=== PATIENT | male | born 1955 | race Caucasian/White ===

== ENCOUNTER → 2018-04-11 14:46 | Outpatient (CLI) | payer OTHER, SELFPAY ==
[2018-04-11 16:16] LABS: Absolute Lymphocyte Count 1.19 X10^3/ul (0.83-4.51); Absolute Neutrophil Count 2.9 X10^3/uL (2.0-7.7); Basophil# 0.02 X10^3/uL; Basophil% 0.4 % (0-1); Eosinophil# 0.09 X10^3/uL; Hematocrit 40.7 % (40-54); Lymphocyte # 1.19 X10^3/ul (4.0); Lymphocyte % 26.2 % (19-41); Mean Corp Hgb Conc 34.4 g/gl (32-36); Mean Corpuscular Hgb 34.3 pg (27.0-32.0); Mean Corpuscular Volume 99.8 fL (80-94); Mean Platelet Vol. 11.2 fl (6.2-12.0); Monocyte# 0.31 X10^3/uL; Monocyte% 6.8 % (0-10); Neutrophil # 2.93 X10^3/uL (2.7-7.7); Neutrophil % 64.4 % (47-70); Platelet Count 143 K/mm3 (150-450); RBC Distribution Width CV 14.5 % (11.6-14.6); RBC Distribution Width SD 53.9 fl (35.1-43.9); Red Blood Count 4.08 M/mm3 (4.6-6.2); White Blood Count 4.6 K/mm3 (4.4-11.0)
[2018-04-11 16:21] LABS: POSITIVE COUNT NO; POSITIVE DIFFERENTIAL NO; POSITIVE MORPHOLOGY NO
[2018-04-11 16:47] LABS: AST(SGOT) 18 U/L (15-37); Alanine Aminotransfer ALT/SGPT 24 U/L (16-61); Albumin, Serum 3.4 g/dL (3.2-5.0); Alkaline Phosphatase 81 U/L (45-117); Anion Gap 8 (5-15); BUN 22 mg/dL (7-18); BUN/Creat Ratio 17.9 RATIO (10-20); Calcium,Total 9.1 mg/dL (8.5-10.1); Chloride 109 mmol/L (98-107); Creatinine, Serum 1.23 mg/dL (0.70-1.30); EST Glomerular Filtration Rate 63 mL/min (>60); Est Glom Filt Rate - Afr Amer 77 mL/min (>60); Globulin 3.5 g/dL (2.2-4.2); Glucose 92 mg/dL (74-106); PSA,Total - Annual Screen 0.76 ng/mL (0.00-4.00); Potassium 4.3 mmol/L (3.5-5.1); Protein, Total 6.9 g/dL (6.4-8.2); Sodium Level 144 mmol/L (136-145)
[2018-04-13 10:27] LABS: Hep C Antibodies 0.3 s/co ratio (0.0-0.9)
== END ==
PROVIDERS: Visit Provider Family Medicine Geriatric Medicine
DX: Z00.00 Encounter for general adult medical examination without abnormal findings (principal); R53.83 Other fatigue; Z12.5 Encounter for screening for malignant neoplasm of prostate; Z13.89 Encounter for screening for other disorder
CPT/HCPCS: 36415; 80053; 84153; 84443; 85025; 86803; G0103

== ENCOUNTER → 2018-05-25 13:42 | Outpatient (CLI) | payer OTHER, SELFPAY ==
--- NOTE | 2018-05-25 13:44 | CT_ITS ---
STUDY: CT CHEST WITHOUT CONTRAST REASON FOR EXAM: Male, 62 years old. Cancer follow-up status post radiation 1 year ago RADIATION DOSAGE (If Supplied By Facility): CTDIvol = ( 7.10 ) mGy, DLP = ( 292.34 ) mGycm TECHNIQUE: Transaxial imaging was performed without the administration of intravenous contrast material. Multiplanar coronal and sagittal images were reformatted. Individualized dose optimization techniques were used for this CT. COMPARISON: December 19, 2017 CT chest FINDINGS: There is a pattern of emphysematous change throughout the lungs with hyperinflation. The left lung is clear without evidence of a focal consolidation pleural effusion or suspicious pulmonary nodule. Within the right lung there is retraction of the right middle lobe parenchyma and visualized scarring since prior there is lesser parenchymal inflammatory change and a more retracted appearance of the lung expected with radiation. There is a coalesced or somewhat nodular component that is for follow-up purposes measured at 3.0 x 2.2 cm image #162. This area on the prior study allowing for differences in technique is similar in shape but slightly lesser in size. Possibly more thickened. There is retraction and some distortion of the minor fissure otherwise the pleura appears grossly normal. There is coronary calcification. There is a trace pericardial effusion. The heart is within normal limits of size. There are small subcentimeter lymph nodes in the AP window which are similar to the prior study. As mentioned above there is a carotid retracted appearance of the soft tissue around the right hilum. There is no evidence of significant new lymph node. Normal unenhanced pulmonary arteries. There is atherosclerotic calcification of the aortic arch with tortuosity and elongation of the aortic arch and descending thoracic aorta. There are multi-level degenerative changes of the thoracic spine. There is severe atrophy of the left kidney. There are gallstones in the gallbladder. The adrenal glands appear grossly normal. The liver appears homogeneous. There is moderate stool in the visualized colon. CT/Chest without Contrast IMPRESSION: There is retraction and scarring as expected within the right middle lobe status post radiation. The area of concern shows a similar shape yet allowing for retraction there is some interval general thickening of the area of concern when compared to the prior study which may be related to retraction and scarring. However, recommend a shorter interval follow-up study such as 6 months or follow-up PET scan to ensure stability or or as clinically appropriate. Electronically Signed: Telma Musa MD at 10:50 EST Tel , Service support ,
== END ==
PROVIDERS: Family Provider Family Medicine Geriatric Medicine; PCP Family Medicine Geriatric Medicine; Referring Provider Student in an Organized Health Care Education/Training Program; Visit Provider Student in an Organized Health Care Education/Training Program
DX: C34.2 Malignant neoplasm of middle lobe, bronchus or lung (principal)
CPT/HCPCS: 71250

== ENCOUNTER → 2018-06-29 10:38 | Outpatient (CLI) | payer OTHER, SELFPAY ==
[2018-06-11 13:33] VITALS: BMI 26.4
[2018-06-27 14:37] VITALS: BMI 19.3
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
== END ==
PROVIDERS: Family Provider Family Medicine Geriatric Medicine; PCP Family Medicine Geriatric Medicine; Referring Provider Internal Medicine; Visit Provider Internal Medicine
DX: M25.571 Pain in right ankle and joints of right foot (principal)
CPT/HCPCS: 73600; 73630

== ENCOUNTER → 2019-02-14 14:36 | Outpatient (CLI) | payer OTHER, SELFPAY ==
[2018-06-11 13:33] VITALS: BMI 26.4
[2019-01-01 14:41] VITALS: BMI 19.2
[2019-02-14 17:16] LABS: T4 Free Direct 0.92 ng/dL (0.76-1.46)
== END ==
PROVIDERS: Family Provider Internal Medicine; PCP Internal Medicine; Referring Provider Internal Medicine; Visit Provider Internal Medicine
DX: Z13.29 Encounter for screening for other suspected endocrine disorder (principal)
CPT/HCPCS: 36415; 84439; 84443

== ENCOUNTER → 2019-04-02 11:19 | Outpatient (CLI) | payer OTHER, SELFPAY ==
[2018-06-11 13:33] VITALS: BMI 26.4
[2019-01-01 14:41] VITALS: BMI 19.2
== END ==
PROVIDERS: Family Provider Internal Medicine; PCP Internal Medicine; Visit Provider Internal Medicine
DX: E03.9 Hypothyroidism, unspecified (principal)
CPT/HCPCS: 36415; 84443

== ENCOUNTER → 2019-04-24 13:18 | Outpatient (CLI) | payer OTHER, SELFPAY ==
[2018-06-11 13:33] VITALS: BMI 26.4
[2019-01-01 14:41] VITALS: BMI 19.2
--- NOTE | 2019-04-24 13:27 | MRI_ITS ---
STUDY: MRI RIGHT ANKLE WITHOUT CONTRAST REASON FOR EXAM: Right ankle pain for 10 months. TECHNIQUE: Standardized fat and water weighted pulse sequences were obtained in all 3 orthogonal planes. COMPARISON: Radiographs 06/29/2018. FINDINGS: There is a edema in the dorsal lateral subcutis adipose space of the proximal forefoot. Normal posterior tibialis tendon. Normal flexor digitorum longus tendon. Normal flexor hallucis longus tendon. There is a small longitudinal split of the submalleolar peroneus brevis tendon (T2 axial image 18) with a C-shaped configuration. Normal peroneus longus tendon. Normal tibialis anterior tendon. Normal extensor hallucis longus tendon. Normal extensor digitorum longus tendons. Normal Achilles tendon and teno-osseous insertion. Normal plantar fascia. Normal plantar calcaneal tubercles. Normal intrinsic muscles of the rearfoot. Normal distal tibiofibular syndesmotic ligamentous complex. Normal lateral ligamentous complex. Normal subtalar ligaments and sinus tarsi. Normal deltoid ligamentous complexes. Normal plantar calcaneonavicular (spring) ligament. There is an osteochondral lesion of the superior aspect of the medial talar dome (T1 sagittal image 14; T1 axial image 12) measuring approximately 1.0 x 0.7 cm (AP x transverse) with mild bone edema of the fragment (T2 coronal image 15). Normal subtalar articulations. Normal talonavicular articulation. Normal calcaneocuboid articulation. Normal navicular-cuneiform articulations. MRI/Lower Ext Joint Only (Routine) IMPRESSION: Small longitudinal split of the peroneus brevis tendon. Osteochondral lesion of the medial talar dome. Electronically Signed: aKleb Rock MD at 15:13 EST Tel , Service support ,
== END ==
PROVIDERS: Family Provider Internal Medicine; PCP Internal Medicine; Referring Provider Podiatrist; Visit Provider Podiatrist
DX: S93.401D Sprain of unspecified ligament of right ankle, subsequent encounter (principal); X58.XXXD Exposure to other specified factors, subsequent encounter
CPT/HCPCS: 73721

== ENCOUNTER → 2019-05-06 12:49 | Outpatient (CLI) | payer OTHER, SELFPAY ==
[2018-06-11 13:33] VITALS: BMI 26.4
[2018-06-27 14:37] VITALS: BMI 19.3
[2019-01-01 14:41] VITALS: BMI 19.2
--- NOTE | 2019-05-06 12:51 | CT_ITS ---
STUDY: CT CHEST WITHOUT CONTRAST REASON FOR EXAM: Male, 63 years old. Lung cancer. RADIATION DOSAGE (If Supplied By Facility): CTDIvol = ( 7.61 ) mGy, DLP = ( 327.19 ) mGycm TECHNIQUE: Transaxial imaging was performed without the administration of intravenous contrast material. Multiplanar coronal and sagittal images were reformatted. Individualized dose optimization techniques were used for this CT. COMPARISON: May 25, 2018. FINDINGS: There is emphysema of the lungs. There is right hilar enlargement with perihilar soft tissue densities and adjacent consolidation. There are regions of bronchiectasis in the lower chest. There is worsening right middle lobe consolidation with endobronchial opacities. There is no demonstrated pleural abnormality. There are calcifications of the coronary arteries. Normal mediastinum. Normal unenhanced pulmonary arteries. There is atherosclerotic calcification of the aortic arch with tortuosity and elongation of the aortic arch and descending thoracic aorta. There are multi-level degenerative changes of the thoracic spine. Healed left rib fractures. There is severe atrophy of the left kidney. There are multiple gallstones in contracted gallbladder. CT/Chest without Contrast IMPRESSION: Stable right hilar enlargement with perihilar soft tissue mass. There are endobronchial opacities with worsening right middle lobe consolidation. Bronchoscopy or PET CT recommended to evaluate for tumor status. Multiple gallstones. Atrophic left kidney. Electronically Signed: Yg Kerns MD at 17:00 EST , Service support ,
== END ==
PROVIDERS: Family Provider Internal Medicine; PCP Internal Medicine; Visit Provider Student in an Organized Health Care Education/Training Program
DX: C34.90 Malignant neoplasm of unspecified part of unspecified bronchus or lung (principal)
CPT/HCPCS: 71250; Q9967

== ENCOUNTER 2019-05-22 13:44 | Outpatient (RCR) | payer OTHER, SELFPAY ==
[2018-06-11 13:33] VITALS: BMI 26.4
[2019-01-01 14:41] VITALS: BMI 19.2
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
--- NOTE | 2019-08-21 09:06 | HP.PT.NRP ---
JHOAN BENNETT was seen in my office for initial evaluation on 05/22/19. The following Plan of Care was established for this patient: Initial Frequency: 1x/Week Initial Duration: 1 Week Patient/Client Instruction: Educate patient on: Condition, Plan of Care For the Purpose of:: To improve self management Therapeutic Exercise to Include: Strength training, Endurance training, Balance training, Flexibilty training For the Purpose of:: To decrease pain, To increase ROM, To improve muscle performance and motor function This patient was last seen in our office . Pertinent comments regarding their Physical therapy will appear below: Pt was treated for 1 visit for R ankle pain through the date of 05/22/19. Pt has not returned through this date and is discontinued at this time. At this point I will be discontinuing this patient from physical therapy. I would be happy to see this patient again in the future if found appropriate by the physician. Thank you! Giovanni Payan, PT, ATC
== END 2019-05-22 19:00 | disposition home or self-care (01) ==
LOC: PT 13:44
PROVIDERS: Family Provider Internal Medicine; PCP Internal Medicine; Referring Provider Podiatrist; Visit Provider Podiatrist
DX: M66.371 Spontaneous rupture of flexor tendons, right ankle and foot (principal); M21.6X1 Other acquired deformities of right foot
CPT/HCPCS: 97161

== ENCOUNTER → 2019-11-21 13:21 | Outpatient (CLI) | payer OTHER, SELFPAY ==
[2018-06-11 13:33] VITALS: BMI 26.4
[2019-01-01 14:41] VITALS: BMI 19.2
[2019-10-30 14:08] VITALS: BMI 19.2
--- NOTE | 2019-11-21 13:29 | CT_ITS ---
STUDY: CT CHEST WITHOUT CONTRAST REASON FOR EXAM: Male, 64 years old. LUNG CANCER F/U. No lung surgery-treated with chemo and radiation RADIATION DOSAGE (If Supplied By Facility): CTDIvol = ( 7.05 ) mGy, DLP = ( 285.11 ) mGycm TECHNIQUE: Transaxial imaging was performed without the administration of intravenous contrast material. Multiplanar coronal and sagittal images were reformatted. Individualized dose optimization techniques were used for this CT. COMPARISON: Comparison is made with prior study dated May 06, 2019. FINDINGS: Stable small bilateral axillary lymph nodes. Hyperinflation and emphysematous changes. There is a persistent 3.3 cm x 1.8 cm right hilar mass extending into the right middle lobe with bronchiectasis and mild degree of postobstructive pneumonitis. This is decreased in size as compared to prior study. There is no demonstrated pleural abnormality. There are calcifications of the coronary arteries. There are multiple small lymph nodes within the mediastinum, which are normal in size and morphology most compatible with reactive lymph hyperplasia. Normal hilar regions. Normal unenhanced pulmonary arteries. There is atherosclerotic calcification of the aortic arch with tortuosity and elongation of the aortic arch and descending thoracic aorta. There are mild multi-level degenerative changes of the thoracic spine. Gallstones. Stable marked atrophy of the left kidney. CT/Chest without Contrast IMPRESSION: Interval decrease in size of the right perihilar mass with the postobstructive pneumonitis in the right middle lobe and bronchiectasis. The remainder of the examination is unchanged. Electronically Signed: Roberto Resendez, at 13:59 EDT , Service support ,
== END ==
PROVIDERS: Family Provider Internal Medicine; PCP Internal Medicine; Referring Provider Student in an Organized Health Care Education/Training Program; Visit Provider Student in an Organized Health Care Education/Training Program
DX: C34.90 Malignant neoplasm of unspecified part of unspecified bronchus or lung (principal)
CPT/HCPCS: 71250

== ENCOUNTER 2019-12-04 01:03 | Emergency (ER) | payer OTHER, SELFPAY ==
[2018-06-11 13:33] VITALS: BMI 26.4
[2019-10-30 14:08] VITALS: BMI 19.2
[2019-12-04] VITALS (7 sets, daily range): BP systolic 97–207; BP diastolic 58–100; PULSE 64–112; RESP 14–23; TEMP 37; O2SAT 95–100; BMI 19.0
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
--- NOTE | 2019-12-04 01:32 | EKG12_ITS ---
Test Reason : FALL Blood Pressure : / mmHG Vent. Rate : 080 BPM Atrial Rate : 080 BPM P-R Int : 170 ms QRS Dur : 088 ms QT Int : 402 ms P-R-T Axes : 082 076 078 degrees QTc Int : 463 ms Normal sinus rhythm Normal ECG Confirmed by LILY ZUÑIGA ([id number]), clinical editor LAURA GOMES ([id number]) on 12/05/2019 11:43:31 AM Referred By: JAM Confirmed By:LILY ZUÑIGA
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
[2019-12-04 01:44] LABS: Absolute Lymphocyte Count 1.28 X10^3/uL (0.83-4.51); Absolute Neutrophil Count 8.3 X10^3/uL (2.0-7.7); Basophil# 0.05 X10^3/uL; Basophil% 0.5 % (0-1); Eosinophil# 0.09 X10^3/uL; Eosinophils% 0.9 % (0-5); Hematocrit 44.4 % (40-54); Hemoglobin 15.8 g/dL (13.0-16.5); Lymphocyte # 1.28 X10^3/ul (4.0); Lymphocyte % 12.4 % (19-41); Mean Corp Hgb Conc 35.6 g/dL (32-36); Mean Corpuscular Hgb 35.2 pg (27.0-32.0); Mean Corpuscular Volume 98.9 fL (80-94); Monocyte# 0.58 X10^3/uL; Monocyte% 5.6 % (0-10); NRBC Flagged by Analyzer 0 % (0-5); Neutrophil # 8.29 X10^3/uL (2.7-7.7); Neutrophil % 80.2 % (47-70); Platelet Count 150 K/mm3 (150-450); RBC Distribution Width CV 12.4 % (11.6-14.6); RBC Distribution Width SD 44.5 fl (35.1-43.9); Red Blood Count 4.49 M/mm3 (4.6-6.2); White Blood Count 10.3 K/mm3 (4.4-11.0)
[2019-12-04] MEDS: 0.9% Normal Saline 1,000 ML 1000 ML IV (01:46)
[2019-12-04] MEDS: LORazepam 2 MG/ML Syringe 1 MG IV (01:46)
[2019-12-04 02:12] LABS: Acetaminophen (Tylenol) Level < 2.0 ug/mL (10.0-30.0); Salicylate 4.9 mg/dL (2.8-20.0)
[2019-12-04 02:19] LABS: ALB/GLOB Ratio 1.2 RATIO (0.9-2.4); AST(SGOT) 30 U/L (15-37); Alanine Aminotransfer ALT/SGPT 31 U/L (16-61); Alkaline Phosphatase 116 U/L (45-117); Anion Gap 12 (5-15); BUN 12 mg/dL (7-18); BUN/Creat Ratio 11.5 RATIO (10-20); Calcium,Total 9.2 mg/dL (8.5-10.1); Chloride 107 mmol/L (98-107); Creatinine, Serum 1.04 mg/dL (0.70-1.30); EST Glomerular Filtration Rate 76 mL/min (>60); Est Glom Filt Rate - Afr Amer 92 mL/min (>60); Globulin 3.2 g/dL (2.2-4.2); Glucose 181 mg/dL (74-106); Protein, Total 7.2 g/dL (6.4-8.2); Sodium Level 139 mmol/L (136-145)
[2019-12-04 02:24] LABS: Alcohol, Blood (Medical)-Serum < 3.0 mg/dL
[2019-12-04 02:37] LABS: International Normalized Ratio 1.2; Prothrombin Time (Protime)PT. 14.2 SECONDS (11.7-14.9)
[2019-12-04 04:16] LABS: Mucous, Urine 0 SEEN /hpf (<or=2+); Red Blood Cells-Urine 0 SEEN /hpf (0-5); Squamous Epithelial Cells - UA 0 SEEN /hpf (0-5); White Blood Cells 0 SEEN /hpf (0-5)
[2019-12-04 04:21] LABS: Color, Urine Yellow (Yellow); Glucose, Dipstick Normal (Normal); Ketone-Dipstick 50 mg/dl (Negative); Leukocyte Esterase-Dipstick Negative /ul (Negative); Nitrite-Dipstick Negative (Negative); Occult Blood-Urine 10 /ul (Negative); Protein-Dipstick 30 mg/dl (Negative); Urine Bilirubin Dipstick Negative (Negative); Urine Clarity Clear (Clear); Urine Urobilinogen Normal (Normal)
[2019-12-04 04:43] LABS: Bacteria RARE /hpf (None Seen)
[2019-12-04 05:00] LABS: Valproic Acid (Depakene) Level < 3 ug/mL (50-100)
[2019-12-04 05:00] LABS: Amphetamine Urine VISTA NEGATIVE (<1000 ng/mL); Barbiturate Urine VISTA NEGATIVE (< 200 ng/mL); Benzodiazepine Urine VISTA NEGATIVE (< 200 ng/mL); Cocaine Urine VISTA NEGATIVE (< 300 ng/mL); Ecstacy Urine VISTA NEGATIVE (< 500 ng/mL); Methadone Urine VISTA NEGATIVE (< 300 ng/mL); PCP Urine VISTA NEGATIVE (< 25 ng/mL); THC Urine VISTA NEGATIVE (< 50 ng/mL); Vista UDS pH Range 6
--- NOTE | 2019-12-04 07:35 | ED.VIS.GEN ---
History of Present Illness Chief Complaint: Fall Informant: Patient, Chyron Operator Onset: Today Narrative: Patient is a 64-year-old male with history of seizure disorder, no longer on any antiepileptic medications, bipolar disorder, hypothyroid, Neuropathy, schizoaffective disorder as well as throat cancer and history of alcohol abuse presenting via EMS for head injury associate with seizure activity. EMS was called and patient had seizure-like activity on his neighbors back porch and struck his head. Is not clear how long the seizure activity lasted but had resolved when EMS arrived. Patient does not know when his last tetanus was. He is cannot tell me when his last seizure was either. Patient currently denies any other complaints at this time. Patient states he lives home alone with his new cat. Patient states that he had a gin and tonic tonight to drink. He states he has 1-2 drinks a day. He denies any heavy drinking. He denies any recent abstinence from alcohol. Past Medical History - Allergies and Home Meds Allergies/Adverse Reactions: Allergies No Known Allergies Allergy (Verified 12/04/19 01:10) Primary Care Physician: Jose Castro MD [Primary Care Provider] - Past Medical History: - - seizure disorder, no longer on any antiepileptic medications, bipolar disorder, hypothyroid, Neuropathy, schizoaffective disorder as well as throat cancer and history of alcohol abuse Surgical History: noncontributory Lives: Alone Smoking Status: Current every day smoker Review of Systems General: Denies: Chills, Fever, Sweats Eyes: Denies: Visual changes - bilaterally, Diplopia ENT: Denies: Rhinorrhea, Sore throat Cardiovascular: Denies: Chest pain, Palpitations Respiratory: Denies: Dyspnea, Cough, Dyspnea on exertion Gastrointestinal: Denies: Abdominal pain, Nausea, Vomiting, Diarrhea, Melena, Hematochezia Genitourinary: Denies: Dysuria, Hematuria, Frequency Musculoskeletal: Denies: Back pain, Extremity Pain Skin: Reports: Abrasions - face. Denies: Rash, Wounds Neurological: Reports: Headache, - - seizure. Denies: Weakness, Numbness Psych: Denies: Depression Physical Exam Vital Signs/Narrative: Vital Signs Pulse Resp BP Pulse Ox 12/04/19 07:00 64 17 97/65 12/04/19 06:09 110/58 L 12/04/19 06:00 66 15 97 12/04/19 04:51 80 23 H 147/75 H 95 12/04/19 04:00 74 20 H 170/89 H 100 Inital Vital Signs reviewed: Yes General: Well nourished, Well developed, No Acute Distress Head: Normocephalic, Trauma, - - 3 cm circumferential superficial abrasion to the forehead with underlying edema, 2 cm abrasion to the right cheek Eyes: Perrl, EOMI ENT: Moist mucous membranes, No rhinorrhea, TM's clear, - - No hemotympanum, no septal hematoma Neck: Supple, Nontender, - - No midline tenderness, full range of motion Cardiovascular: Regular rate, Regular rhythm, No murmurs Respiratory: No distress, CTA bilaterally, Chest nontender Abdomen: Soft, Nontender, Nondistended, Normal bowel sounds Back: Nontender, Normal Inspection Extremities: Nontender, No edema Skin: Normal color, No rash, Trauma - See head exam. Superficial abrasions to the bilateral knuckles. Neurological: Alert, Oriented x3, Cranial nerves II-XII grossly intact, Normal Strength, Normal Sensation Psychological: Normal affect, Normal Mood Diagnostic/Tx/Re-eval Clinical Impression(s) from Imaging Studies Brain CT 12/04/19 01:31 IMPRESSION: Chronic involutional changes of the brain. Electronically Signed: Ignacio Barnhart, at 2:28 EDT Tel , Service support , Chest X-Ray 12/04/19 01:31 IMPRESSION: There is hyperinflation of the lungs consistent with chronic obstructive lung disease (COPD). There is stable right middle lobe mass has not seen any change since 11/21/2019. Electronically Signed: Ignacio Barnhart, at 2:15 EDT Tel , Service support , Cervical Spine CT 12/04/19 01:33 IMPRESSION: Multilevel degenerative changes, as described above. Electronically Signed: Ignacio Barnhart at 2:30 EDT Tel , Service support , Laboratory Data 12/04/19 12/04/19 12/04/19 01:35 01:35 01:35 WBC 10.3 RBC 4.49 L Hgb 15.8 Hct 44.4 MCV 98.9 H MCH 35.2 H MCHC 35.6 RDW Std Deviation 44.5 H RDW Coeff of Oneal 12.4 Plt Count 150 MPV 10.0 Immature Gran % (Auto) 0.400 Neut % (Auto) 80.2 H Lymph % (Auto) 12.4 L [place] % (Auto) 5.6 Eos % (Auto) 0.9 Baso % (Auto) 0.5 Absolute Neuts (auto) 8.3 H Absolute Lymphs (auto) 1.28 Nucleated RBC % 0 PT 14.2 INR 1.2 Sodium 139 Potassium 3.0 L Chloride 107 Carbon Dioxide 20.0 L Anion Gap 12 BUN 12 Creatinine 1.04 Estim Creat Clear Calc 61.00 Est GFR (MDRD) Af Amer 92 Est GFR (MDRD) Non-Af 76 BUN/Creatinine Ratio 11.5 Glucose 181 H Calcium 9.2 Total Bilirubin 1.00 AST 30 ALT 31 Alkaline Phosphatase 116 Troponin I 0.025 Total Protein 7.2 Albumin 4.0 Globulin 3.2 Albumin/Globulin Ratio 1.2 TSH 6.70 H Urine Color Urine Clarity Urine pH Ur Specific [place] Urine Protein Urine Glucose (UA) Urine Ketones Urine Occult Blood Urine Nitrite Urine Bilirubin Urine Urobilinogen Ur Leukocyte Esterase Urine RBC Urine WBC Ur Squamous Epith Cells Urine Bacteria Urine Mucus Salicylates Urine Opiates Screen Urine Methadone Screen Acetaminophen Ur Barbiturates Screen Valproic Acid Ur Phencyclidine Scrn Ur Amphetamines Screen U Methamphetamin-MDMA U Benzodiazepines Scrn Urine Cocaine Screen U Cannabinoids Screen Ur Drug Screen Comment Ethyl Alcohol 12/04/19 12/04/19 12/04/19 01:35 01:35 01:35 WBC RBC Hgb Hct MCV MCH MCHC RDW Std Deviation RDW Coeff of Oneal Plt Count MPV Immature Gran % (Auto) Neut % (Auto) Lymph % (Auto) [place] % (Auto) Eos % (Auto) Baso % (Auto) Absolute Neuts (auto) Absolute Lymphs (auto) Nucleated RBC % PT INR Sodium Potassium Chloride Carbon Dioxide Anion Gap BUN Creatinine Estim Creat Clear Calc Est GFR (MDRD) Af Amer Est GFR (MDRD) Non-Af BUN/Creatinine Ratio Glucose Calcium Total Bilirubin AST ALT Alkaline Phosphatase Troponin I Total Protein Albumin Globulin Albumin/Globulin Ratio TSH Urine Color Urine Clarity Urine pH Ur Specific [place] Urine Protein Urine Glucose (UA) Urine Ketones Urine Occult Blood Urine Nitrite Urine Bilirubin Urine Urobilinogen Ur Leukocyte Esterase Urine RBC Urine WBC Ur Squamous Epith Cells Urine Bacteria Urine Mucus Salicylates 4.9 Urine Opiates Screen Urine Methadone Screen Acetaminophen < 2.0 L Ur Barbiturates Screen Valproic Acid < 3 L Ur Phencyclidine Scrn Ur Amphetamines Screen U Methamphetamin-MDMA U Benzodiazepines Scrn Urine Cocaine Screen U Cannabinoids Screen Ur Drug Screen Comment Ethyl Alcohol < 3.0 12/04/19 12/04/19 04:10 04:10 WBC RBC Hgb Hct MCV MCH MCHC RDW Std Deviation RDW Coeff of Oneal Plt Count MPV Immature Gran % (Auto) Neut % (Auto) Lymph % (Auto) [place] % (Auto) Eos % (Auto) Baso % (Auto) Absolute Neuts (auto) Absolute Lymphs (auto) Nucleated RBC % PT INR Sodium Potassium Chloride Carbon Dioxide Anion Gap BUN Creatinine Estim Creat Clear Calc Est GFR (MDRD) Af Amer Est GFR (MDRD) Non-Af BUN/Creatinine Ratio Glucose Calcium Total Bilirubin AST ALT Alkaline Phosphatase Troponin I Total Protein Albumin Globulin Albumin/Globulin Ratio TSH Urine Color Yellow Urine Clarity Clear Urine pH 5.0 Ur Specific [place] 1.020 Urine Protein 30 H Urine Glucose (UA) Normal Urine Ketones 50 H Urine Occult Blood 10 H Urine Nitrite Negative Urine Bilirubin Negative Urine Urobilinogen Normal Ur Leukocyte Esterase Negative Urine RBC 0 SEEN Urine WBC 0 SEEN Ur Squamous Epith Cells 0 SEEN Urine Bacteria RARE Urine Mucus 0 SEEN Salicylates Urine Opiates Screen NEGATIVE Urine Methadone Screen NEGATIVE Acetaminophen Ur Barbiturates Screen NEGATIVE Valproic Acid Ur Phencyclidine Scrn NEGATIVE Ur Amphetamines Screen NEGATIVE U Methamphetamin-MDMA NEGATIVE U Benzodiazepines Scrn NEGATIVE Urine Cocaine Screen NEGATIVE U Cannabinoids Screen NEGATIVE Ur Drug Screen Comment Ethyl Alcohol - Rhythm Strip Rhythm Strip: Sinus Rhythm Rate: 80 Ectopy: None - EKG Initial EKG Interpretation: Sinus Rhythm, - - Normal sinus rhythm at a rate of [address] segments Normal intervals - Medical Decision Making Patient is evaluated for head injury and seizure activity. Chart review shows that patient does have a history of seizures. Patient states he is no longer on his seizure medications. He thinks it is because he had had a seizure and so long. He denies any recent abstinence from alcohol and this does not sound like an alcohol withdrawal seizure. I will initiate patient arrived to the emergency room he is back to his baseline. He then has another seizure that lasted for approximately 2 minutes. It resolves on its own. It involves generalized tonic-clonic movement of the patient's head and arms. Patient is given IV Ativan after this episode. He is monitored for couple hours and has no further seizure activity. Head CT obtained as patient has significant abrasions to his face likely from fall associated with his first seizure. No acute process is seen. CT of the neck is also negative. The remainder patient's metabolic work-up including drug screen and alcohol are grossly negative. Patient's valproic acid level is negative. He is given IV dose of valproic acid. He will be restarted on his valproic acid. Case is discussed with the PA, Dago Godinez, who is on-call for his PCP. He is agreeable with plan to restart patient's valproic acid and follow-up in the office. Patient does not currently have a neurologist. Patient is offered admission but declined stating he would like to just go home. As patient is ANO x4 and has capacity, he is able to make this decision. Localized wound care applied to patient's abrasions. The wounds are not conducive to laceration repair. Tetanus is updated in the emergency room. He is counseled on return precautions. He is given seizure precaution such as no driving, swimming or bathing until cleared by neurology. ED Disposition - Plan for ED Patient: Disposition: Home or Assisted Living Diagnosis: Facial abrasion, Head injury, Breakthrough seizure Instructions: ED Abrasion, ED Head Injury Adult, ED Seizure Recurrent Adult Prescriptions: Valproic Acid 250 mg PO DAILY #14 cap Transmission Status: Pending to [facility] #30 Referrals: Jose Castro MD [Primary Care Provider] - Additional Instructions: It appears that you had a seizure which caused you to fall and scrape of your face. You do not need stitches at this time. You had another seizure while in the emergency room. I am restarting your seizure medication, valproic acid. You are given first dose in the emergency room through the IV. Please follow-up with your primary care doctor the next day or 2 for further evaluation. Return the emergency room if you have any worsening symptoms.
--- NOTE | 2019-12-04 08:17 | ED.RN ---
assisted pt with calling for [employer]. water given and forehead dressed.
== END 2019-12-04 08:18 | disposition home or self-care (01) ==
PROVIDERS: Emergency Provider Emergency Medicine; PCP Internal Medicine
DX: G40.909 Epilepsy, unspecified, not intractable, without status epilepticus (principal); S00.81XA Abrasion of other part of head, initial encounter; S60.419A Abrasion of unspecified finger, initial encounter; Z23 Encounter for immunization; W01.10XA Fall on same level from slipping, tripping and stumbling with subsequent striking against unspecified object, initial encounter; Y93.9 Activity, unspecified; Y92.008 Other place in unspecified non-institutional (private) residence as the place of occurrence of the external cause; Y99.9 Unspecified external cause status; E03.9 Hypothyroidism, unspecified; F25.9 Schizoaffective disorder, unspecified; F31.9 Bipolar disorder, unspecified; F17.200 Nicotine dependence, unspecified, uncomplicated; Z79.899 Other long term (current) drug therapy
CPT/HCPCS: 70450; 71045; 72125; 80053; 80164; 80307; 80320; 80329; 81001; 84443; 84484; 85025; 85610; 93005; 96361; 96365; 96366; 96375; 99285; J7030; J7050; A4216; G0480

== ENCOUNTER 2019-12-07 20:28 | Emergency (ER) | payer OTHER, SELFPAY ==
[2018-06-11 13:33] VITALS: BMI 26.4
[2019-12-04 01:04] VITALS: BMI 19.0
[2019-12-07 20:31] VITALS: BP 180/97; PULSE 98; RESP 16; TEMP 36.6; O2SAT 99; BMI 18.3
--- NOTE | 2019-12-07 21:09 | EKG12_ITS ---
Test Reason : DYSRHYTHMIA Blood Pressure : / mmHG Vent. Rate : 077 BPM Atrial Rate : 077 BPM P-R Int : 160 ms QRS Dur : 088 ms QT Int : 392 ms P-R-T Axes : 082 075 071 degrees QTc Int : 443 ms Normal sinus rhythm Normal ECG Confirmed by LILY ZUÑIGA ([id number]), senior technical editor LAURA GOMES ([id number]) on 12/09/2019 2:03:17 PM Referred By: JAMIE Confirmed By:LILY ZUÑIGA
--- NOTE | 2019-12-07 21:09 | CT_ITS ---
STUDY: CT BRAIN WITHOUT CONTRAST REASON FOR EXAM: Male, 64 years old. Patient fell on concrete 2 days ago, left-sided head abrasion. RADIATION DOSAGE (If Supplied By Facility): CTDIvol = ( 44.99 ) mGy, DLP = ( 829.85 ) mGycm TECHNIQUE: Transaxial CT imaging of the brain was performed without administration of intravenous contrast material. Individualized dose optimization techniques were used for this CT. COMPARISON: 7 1020. FINDINGS: Markedly improved left frontal scalp soft tissue hematoma. Normal calvarium. Prominent ventricles and extra-axial spaces for the patient''s age. There are areas of decreased attenuation within the white matter tracts of the supratentorial brain, consistent with microvascular disease changes. Normal basal ganglia and thalami. Normal brainstem. Normal cerebellum. There is no intracranial hemorrhage. There are no findings of an acute ischemic infarction. Normal visualized paranasal sinuses. CT/Brain/Head without Contrast IMPRESSION: No acute intracranial process. Electronically Signed: Markus Rodríguez MD at 22:14 EDT Tel , Service support ,
--- NOTE | 2019-12-07 21:10 | CT_ITS ---
STUDY: CT CERVICAL SPINE WITHOUT CONTRAST REASON FOR EXAM: Male, 64 years old. Patient fell on concrete 2 days ago. RADIATION DOSAGE (If Supplied By Facility): CTDIvol = ( 13.48 ) mGy, DLP = ( 302.23 ) mGycm TECHNIQUE: High resolution transaxial imaging was performed without contrast material. Sagittal and coronal images were reconstructed. Individualized dose optimization techniques were used for this CT. COMPARISON: None FINDINGS: Normal craniovertebral junction. There are degenerative changes of the anterior atlantoaxial articulation. Normal odontoid process. There is straightening of the normal cervical lordosis. There is no evidence of acute compression fracture deformity. The posterior elements appear intact. The alignment of the vertebral bodies is unremarkable. There is no prevertebral soft tissue swelling. C2-3: Degenerative changes in the apophyseal joints. No evidence of central bony spinal canal stenosis. Mild narrowing of the neural foramina worse on the left side. C3-4: Mild broad-based posterior degenerative spur. Borderline central spinal canal. No evidence of bony neural foramina stenosis. C4-5: Central posterior degenerative spur indenting the thecal sac measuring about 3 mm. Mild narrowing of the central spinal canal. No evidence of bony neural foramina stenosis. C5-6: Anterior degenerative osteophyte formations. No evidence of bony central spinal canal or bony neural foramina stenosis. C6-7: Anterior degenerative osteophyte formations. No evidence of central spinal canal or neural foramina stenosis C7-T1: Normal endplates. Normal disc height and morphology. Normal central canal and intervertebral neuroforamina. There are atherosclerotic calcifications of the carotid arteries. The visualized lung apices demonstrate no evidence of pneumothorax. CT/Spine Cervical without Contras IMPRESSION: 1. Multilevel degenerative changes, as described above. 2. Straightening of the cervical spine which could be due to muscle spasm. 3. No demonstrated acute fracture or subluxation. 4. If symptoms persist, MRI of the cervical spine is recommended. Electronically Signed: Markus Rodríguez MD at 22:19 EDT Tel , Service support ,
--- NOTE | 2019-12-07 21:11 | ED.VIS.GEN ---
History of Present Illness Chief Complaint: Alt LOC Informant: Patient Narrative: 64-year-old male with past medical history of bipolar disorder presents with concern for confusion. Patient brought in by EMS after neighbors called the police and felt that he was acting confused. Patient states that he did fall 2 nights ago. States the chair slipped out from under him he fell forward striking his head as well but has bilateral hands. States that he has been doing well other than the fact that he has abrasions to his head. He denies any nausea, vomiting, diaphoresis, headache, vision change, neck pain, abdominal pain, chest pain, shortness of breath. Past Medical History - Allergies and Home Meds Allergies/Adverse Reactions: Allergies No Known Allergies Allergy (Verified 12/07/19 20:35) Primary Care Physician: Shalini Toledo MD [Primary Care Provider] - Past Medical History: - - bipolar Surgical History: noncontributory Lives: Alone Smoking Status: Current every day smoker Alcohol: None Drugs: None Review of Systems General: Denies: Chills, Fever, Sweats Eyes: Denies: Visual changes - bilaterally, Diplopia ENT: Denies: Rhinorrhea, Sore throat Cardiovascular: Denies: Chest pain, Palpitations Respiratory: Denies: Dyspnea, Cough, Dyspnea on exertion Gastrointestinal: Denies: Abdominal pain, Nausea, Vomiting, Diarrhea, Melena, Hematochezia Genitourinary: Denies: Dysuria, Hematuria, Frequency Musculoskeletal: Denies: Back pain, Extremity Pain Skin: Reports: Wounds. Denies: Rash Neurological: Denies: Headache, Weakness, Numbness Physical Exam Vital Signs/Narrative: Vital Signs Temp Pulse Resp BP Pulse Ox 12/07/19 20:31 98 F 98 16 180/97 H 99 Inital Vital Signs reviewed: Yes General: Well nourished, Well developed, No Acute Distress Head: Normocephalic, - - abrasions to the forehead Eyes: Perrl, EOMI ENT: Moist mucous membranes, No rhinorrhea Neck: Supple, Nontender Cardiovascular: Regular rate, Regular rhythm, No murmurs Respiratory: No distress, CTA bilaterally, Chest nontender Abdomen: Soft, Nontender, Nondistended, Normal bowel sounds Back: Nontender, Normal Inspection Extremities: Nontender, No edema Skin: Normal color, No rash, - - abrasions to the bilateral hands. ecchymosis to the left elbow. Neurological: Alert, Oriented x3, Cranial nerves II-XII grossly intact, Normal Strength, Normal Sensation Psychological: Normal affect, Normal Mood Diagnostic/Tx/Re-eval Clinical Impression(s) from Imaging Studies Brain CT 12/07/19 21:09 IMPRESSION: No acute intracranial process. Electronically Signed: Markus Rodríguez MD at 22:14 EDT Tel , Service support , Cervical Spine CT 12/07/19 21:10 IMPRESSION: 1. Multilevel degenerative changes, as described above. 2. Straightening of the cervical spine which could be due to muscle spasm. 3. No demonstrated acute fracture or subluxation. 4. If symptoms persist, MRI of the cervical spine is recommended. Electronically Signed: Markus Rodríguez MD at 22:19 EDT Tel , Service support , Chest X-Ray 12/07/19 21:50 IMPRESSION: 1. No significant change. 2. COPD changes. 3. Persistent left perihilar mass. Electronically Signed: Markus Rodríguez MD at 22:23 EDT Tel , Service support , Laboratory Data 12/07/19 12/07/19 12/07/19 20:50 20:50 20:50 WBC 6.7 RBC 4.16 L Hgb 14.3 Hct 40.8 MCV 98.1 H MCH 34.4 H MCHC 35.0 RDW Std Deviation 44.0 H RDW Coeff of Oneal 12.2 Plt Count 154 MPV 10.2 Immature Gran % (Auto) 0.100 Neut % (Auto) 72.1 H Lymph % (Auto) 17.8 L [place] % (Auto) 8.4 Eos % (Auto) 1.0 Baso % (Auto) 0.6 Absolute Neuts (auto) 4.8 Absolute Lymphs (auto) 1.19 Nucleated RBC % 0 Sodium 139 Potassium 3.4 L Chloride 104 Carbon Dioxide 22.0 Anion Gap 13 BUN 20 H Creatinine 0.95 Estim Creat Clear Calc 64.67 Est GFR (MDRD) Af Amer 103 Est GFR (MDRD) Non-Af 85 BUN/Creatinine Ratio 21.1 H Glucose 77 Calcium 9.2 Total Bilirubin 1.20 H AST 44 H ALT 46 Alkaline Phosphatase 115 Troponin I < 0.015 Total Protein 7.3 Albumin 4.0 Globulin 3.3 Albumin/Globulin Ratio 1.2 Ethyl Alcohol < 3.0 POC Glucose 12/07/19 21:41 WBC RBC Hgb Hct MCV MCH MCHC RDW Std Deviation RDW Coeff of Oneal Plt Count MPV Immature Gran % (Auto) Neut % (Auto) Lymph % (Auto) [place] % (Auto) Eos % (Auto) Baso % (Auto) Absolute Neuts (auto) Absolute Lymphs (auto) Nucleated RBC % Sodium Potassium Chloride Carbon Dioxide Anion Gap BUN Creatinine Estim Creat Clear Calc Est GFR (MDRD) Af Amer Est GFR (MDRD) Non-Af BUN/Creatinine Ratio Glucose Calcium Total Bilirubin AST ALT Alkaline Phosphatase Troponin I Total Protein Albumin Globulin Albumin/Globulin Ratio Ethyl Alcohol POC Glucose 74 - Rhythm Strip Rhythm Strip: Sinus Rhythm Rate: 77 Ectopy: None - EKG Initial EKG Interpretation: Sinus Rhythm - Normal sinus rhythm at [address] and QTC within normal limits. No evidence of ST elevation or depression at this time. - Medical Decision Making Appears well and nontoxic. Evidence of abrasions to the forehead as well as hands which appear to be days old. No focal neurologic deficit. Patient is alert and oriented x3. CT brain negative. Chest x-ray negative. Lab work within normal limits. After extensive discussion with the patient he states that he feels safe at home. Able to ambulate within the emergency department. Incidental finding of lung nodule. Discussed with patient that he needs to follow-up with primary care about this issue. Asked to follow-up with his primary care physician and return for any new or worsening symptoms. Patient agreeable and discharged home in stable condition. ED Disposition - Plan for ED Patient: Disposition: Home or Assisted Living Diagnosis: Fall, Abrasion, Lung mass Instructions: ED Abrasion, ED Fall Uncertain Cause, ED Nodule Solitary Pulmonary Referrals: Shalini Toledo MD [Primary Care Provider] -
[2019-12-07 21:24] LABS: Absolute Lymphocyte Count 1.19 X10^3/uL (0.83-4.51); Absolute Neutrophil Count 4.8 X10^3/uL (2.0-7.7); Basophil# 0.04 X10^3/uL; Basophil% 0.6 % (0-1); Eosinophil# 0.07 X10^3/uL; Hematocrit 40.8 % (40-54); Hemoglobin 14.3 g/dL (13.0-16.5); Lymphocyte # 1.19 X10^3/ul (4.0); Lymphocyte % 17.8 % (19-41); Mean Corpuscular Hgb 34.4 pg (27.0-32.0); Mean Corpuscular Volume 98.1 fL (80-94); Mean Platelet Vol. 10.2 fl (6.2-12.0); Monocyte# 0.56 X10^3/uL; Monocyte% 8.4 % (0-10); NRBC Flagged by Analyzer 0 % (0-5); Neutrophil # 4.83 X10^3/uL (2.7-7.7); Neutrophil % 72.1 % (47-70); Platelet Count 154 K/mm3 (150-450); RBC Distribution Width CV 12.2 % (11.6-14.6); Red Blood Count 4.16 M/mm3 (4.6-6.2); White Blood Count 6.7 K/mm3 (4.4-11.0)
[2019-12-07 21:38] LABS: ALB/GLOB Ratio 1.2 RATIO (0.9-2.4); AST(SGOT) 44 U/L (15-37); Alanine Aminotransfer ALT/SGPT 46 U/L (16-61); Alkaline Phosphatase 115 U/L (45-117); Anion Gap 13 (5-15); BUN 20 mg/dL (7-18); BUN/Creat Ratio 21.1 RATIO (10-20); Calcium,Total 9.2 mg/dL (8.5-10.1); Chloride 104 mmol/L (98-107); Creatinine, Serum 0.95 mg/dL (0.70-1.30); EST Glomerular Filtration Rate 85 mL/min (>60); Est Glom Filt Rate - Afr Amer 103 mL/min (>60); Estimated Creatinine Clearance 64.67 ml/min; Globulin 3.3 g/dL (2.2-4.2); Glucose 77 mg/dL (74-106); Potassium 3.4 mmol/L (3.5-5.1); Protein, Total 7.3 g/dL (6.4-8.2); Sodium Level 139 mmol/L (136-145)
[2019-12-07 21:49] LABS: Alcohol, Blood (Medical)-Serum < 3.0 mg/dL
[2019-12-07 21:50] LABS: Bedside Glucose 74 mg/dL (70-110)
--- NOTE | 2019-12-07 21:50 | RAD_ITS ---
STUDY: X-RAY CHEST REASON FOR EXAM: Male, 64 years old. Altered mental status. TECHNIQUE: Single AP portable view of the chest. COMPARISON: 12/04/2019. FINDINGS: There is hyperinflation of the lungs consistent with chronic obstructive lung disease (COPD). Right perihilar mass is again seen unchanged since prior examination. There is no demonstrated pleural abnormality. Normal size heart. Normal mediastinum and almas. Normal visualized pulmonary arteries. Normal visualized aortic arch and descending thoracic aorta. Stable bony structures. There is no demonstrated abnormality of the visualized soft tissue structures of the upper abdomen. RAD/Chest 1 View (Portable) IMPRESSION: 1. No significant change. 2. COPD changes. 3. Persistent left perihilar mass. Electronically Signed: Markus Rodríguez MD at 22:23 EDT Tel , Service support ,
[2019-12-07] MEDS: 0.9% Normal Saline 1,000 ML 1000 ML IV (22:07)
[2019-12-07] MEDS: Diphth,Pertuss(Acell),Tet Vac 0.5 ML Vial IM (22:07)
[2019-12-07 22:46] VITALS: BP 170/82; PULSE 91; RESP 16; O2SAT 99
== END 2019-12-08 00:16 | disposition home or self-care (01) ==
PROVIDERS: Emergency Provider Emergency Medicine; PCP Internal Medicine
DX: S00.81XA Abrasion of other part of head, initial encounter (principal); S60.512A Abrasion of left hand, initial encounter; S60.511A Abrasion of right hand, initial encounter; W08.XXXA Fall from other furniture, initial encounter; Y93.9 Activity, unspecified; Y92.9 Unspecified place or not applicable; Y99.9 Unspecified external cause status; F17.200 Nicotine dependence, unspecified, uncomplicated; F31.9 Bipolar disorder, unspecified; Z79.899 Other long term (current) drug therapy
CPT/HCPCS: 70450; 71045; 72125; 80053; 80320; 82962; 84484; 85025; 90715; 93005; 96360; 99285; J7030; A4216; G0480

== ENCOUNTER 2019-12-08 19:19 | Emergency (ER) | payer OTHER, SELFPAY ==
[2018-06-11 13:33] VITALS: BMI 26.4
[2019-12-07 20:31] VITALS: BMI 18.3
[2019-12-08 19:21] VITALS: BP 150/81; PULSE 95; RESP 18; TEMP 36.9; O2SAT 98; BMI 17.9
--- NOTE | 2019-12-08 19:37 | EKG12_ITS ---
Test Reason : DYSRHYTHMIA Blood Pressure : / mmHG Vent. Rate : 084 BPM Atrial Rate : 084 BPM P-R Int : 156 ms QRS Dur : 086 ms QT Int : 386 ms P-R-T Axes : 082 079 078 degrees QTc Int : 456 ms Normal sinus rhythm Possible RANI Abnormal ECG Confirmed by JUAN MANUEL PERALTA, CELINE ([id number]), staff editor EDER BRUNER ([id number]) on 12/11/2019 10:09:10 AM Referred By: LILY Confirmed By:CELINE ZAMBRANO MD
--- NOTE | 2019-12-08 19:47 | ED.VIS.GEN ---
History of Present Illness Chief Complaint: Confusion Informant: Patient, Family, Psychosocial Rehabilitation Counselor Narrative: Patient presents back to the emergency room today for continued confusion. Patient was seen on December 03 with a seizure witnessed by neighbors. He had another seizure while in the emergency room. He reportedly had a history of seizure disorder but been off of his valproic acid for quite some time because he had not had a seizure in so long. This was restarted after work-up was negative. Patient was brought to the emergency room yesterday after neighbors called police and paramedics stating that he was not taking his medication was not acting normally. Patient stated that he was taking his medications. He was not suicidal. Work-up at that time was unremarkable and it was not felt the patient could be held against his will. He was discharged home. Today he was reportedly found wandering in a park. I spoke with patient's family on the phone and they advised that the patient was very belligerent when they picked him up last evening. He was asking to go get an alcoholic drink. They do not believe that he has been taking his medication. They feel that he is not taking care of himself and feel that he needs placement and medications adjusted. As I enter the room the patient is reading out loud from a book that he was given. Nursing staff advised to that he was in the room talking to God. Patient knows where he is, the month, and the year. He states he is taking his medication. He does not feel suicidal. 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 Comment: S/P RADIATION 11/2013 (3) Bipolar 1 disorder Status: Chronic (4) COPD (chronic obstructive pulmonary disease) Status: Chronic (5) Dementia Status: Chronic (6) Hypothyroidism Status: Chronic (7) Schizoaffective disorder Status: Chronic (8) Throat cancer Status: Chronic (9) History of alcoholism Status: Chronic Past Medical History - Allergies and Home Meds Allergies/Adverse Reactions: Allergies No Known Allergies Allergy (Verified 12/08/19 19:25) Primary Care Physician: Shalini Toledo MD [Primary Care Provider] - Prior records reviewed: Yes Surgical History: noncontributory Lives: Alone Smoking Status: Current every day smoker Review of Systems General: Denies: Chills, Fever Eyes: Denies: Visual changes - bilaterally ENT: Denies: Bilateral ear pain Cardiovascular: Denies: Chest pain Respiratory: Denies: Dyspnea Gastrointestinal: Denies: Abdominal pain, Nausea, Vomiting, Diarrhea Genitourinary: Denies: Dysuria Musculoskeletal: Denies: Extremity Pain Skin: Reports: Abrasions Neurological: Denies: Headache Hematologic: Denies: Easy bruising, Easy bleeding Allergy: Denies: Uticaria Physical Exam Vital Signs/Narrative: Vital Signs Temp Pulse Resp BP Pulse Ox 12/08/19 19:21 98.4 F 95 18 150/81 H 98 Inital Vital Signs reviewed: Yes General: Well nourished, Well developed Head: Negative for: Normocephalic ENT: Negative for: Moist mucous membranes Neck: Supple Cardiovascular: Regular rate, Regular rhythm Respiratory: No distress, CTA bilaterally Abdomen: Soft, Nontender Extremities: Nontender Skin: Normal color Neurological: Alert, Oriented x3, Normal Strength, Normal Sensation Psychological: - - Seems to be responding to internal stimulus. He has tangential thinking. He denies suicidal ideation. Diagnostic/Tx/Re-eval Laboratory Results 12/08/19 12/08/19 12/08/19 19:52 19:52 19:52 WBC 7.0 RBC 4.32 L Hgb 14.9 Hct 43.5 MCV 100.7 H MCH 34.5 H MCHC 34.3 RDW Std Deviation 46.5 H RDW Coeff of Oneal 12.5 Plt Count 163 MPV 10.2 Immature Gran % (Auto) 0.400 Neut % (Auto) 80.2 H Lymph % (Auto) 11.4 L Swisher % (Auto) 7.2 Eos % (Auto) 0.4 Baso % (Auto) 0.4 Absolute Neuts (auto) 5.6 Absolute Lymphs (auto) 0.79 L Nucleated RBC % 0 Sodium 142 Potassium 3.5 Chloride 109 H Carbon Dioxide 22.0 Anion Gap 11 BUN 20 H Creatinine 1.04 Estim Creat Clear Calc 57.65 Est GFR (MDRD) Af Amer 92 Est GFR (MDRD) Non-Af 76 BUN/Creatinine Ratio 19.2 Glucose 69 L Calcium 9.6 Total Bilirubin 1.20 H Direct Bilirubin 0.38 H AST 53 H ALT 54 Alkaline Phosphatase 122 H Total Protein 7.6 Albumin 4.2 Globulin 3.4 Valproic Acid Ethyl Alcohol < 3.0 12/08/19 19:52 WBC RBC Hgb Hct MCV MCH MCHC RDW Std Deviation RDW Coeff of Oneal Plt Count MPV Immature Gran % (Auto) Neut % (Auto) Lymph % (Auto) Swisher % (Auto) Eos % (Auto) Baso % (Auto) Absolute Neuts (auto) Absolute Lymphs (auto) Nucleated RBC % Sodium Potassium Chloride Carbon Dioxide Anion Gap BUN Creatinine Estim Creat Clear Calc Est GFR (MDRD) Af Amer Est GFR (MDRD) Non-Af BUN/Creatinine Ratio Glucose Calcium Total Bilirubin Direct Bilirubin AST ALT Alkaline Phosphatase Total Protein Albumin Globulin Valproic Acid < 3 L Ethyl Alcohol - EKG Initial EKG Interpretation: Sinus Rhythm - Sinus 84 with no acute ischemia. - Medical Decision Making Patient's blood work is unremarkable at this time. Urine tox screen is pending. Once this is obtained he will need to have an evaluation by the counseling center. Patient did have increased agitation. He was given 1 mg of IV Ativan. Patient be signed out to oncoming physician for final re-eval and disposition. ED Disposition - Plan for ED Patient: Referrals: Shalini Toledo MD [Primary Care Provider] -
[2019-12-08 20:25] LABS: AST(SGOT) 53 U/L (15-37); Alanine Aminotransfer ALT/SGPT 54 U/L (16-61); Albumin, Serum 4.2 g/dL (3.2-5.0); Alkaline Phosphatase 122 U/L (45-117); Anion Gap 11 (5-15); BUN 20 mg/dL (7-18); BUN/Creat Ratio 19.2 RATIO (10-20); Bilirubin, Direct 0.38 mg/dL (0.00-0.30); Calcium,Total 9.6 mg/dL (8.5-10.1); Chloride 109 mmol/L (98-107); Creatinine, Serum 1.04 mg/dL (0.70-1.30); EST Glomerular Filtration Rate 76 mL/min (>60); Est Glom Filt Rate - Afr Amer 92 mL/min (>60); Estimated Creatinine Clearance 57.65 ml/min; Globulin 3.4 g/dL (2.2-4.2); Glucose 69 mg/dL (74-106); Potassium 3.5 mmol/L (3.5-5.1); Protein, Total 7.6 g/dL (6.4-8.2); Sodium Level 142 mmol/L (136-145)
[2019-12-08 20:47] LABS: Absolute Lymphocyte Count 0.79 X10^3/uL (0.83-4.51); Absolute Neutrophil Count 5.6 X10^3/uL (2.0-7.7); Basophil# 0.03 X10^3/uL; Basophil% 0.4 % (0-1); Eosinophil# 0.03 X10^3/uL; Eosinophils% 0.4 % (0-5); Hematocrit 43.5 % (40-54); Hemoglobin 14.9 g/dL (13.0-16.5); Lymphocyte # 0.79 X10^3/ul (4.0); Lymphocyte % 11.4 % (19-41); Mean Corp Hgb Conc 34.3 g/dL (32-36); Mean Corpuscular Hgb 34.5 pg (27.0-32.0); Mean Corpuscular Volume 100.7 fL (80-94); Mean Platelet Vol. 10.2 fl (6.2-12.0); Monocyte% 7.2 % (0-10); NRBC Flagged by Analyzer 0 % (0-5); Neutrophil # 5.58 X10^3/uL (2.7-7.7); Neutrophil % 80.2 % (47-70); Platelet Count 163 K/mm3 (150-450); RBC Distribution Width CV 12.5 % (11.6-14.6); RBC Distribution Width SD 46.5 fl (35.1-43.9); Red Blood Count 4.32 M/mm3 (4.6-6.2)
[2019-12-08 20:54] LABS: Alcohol, Blood (Medical)-Serum < 3.0 mg/dL
[2019-12-08 21:09] LABS: Valproic Acid (Depakene) Level < 3 ug/mL (50-100)
[2019-12-08] MEDS: LORazepam 2 MG/ML Syringe 1 MG IV (21:44)
[2019-12-08 21:45] VITALS: BP 139/81; PULSE 71; RESP 17; O2SAT 94
--- NOTE | 2019-12-08 21:48 | ED.RN ---
patient removed self from monitor. when this rn entered the room patient was standing up by the sink in the room urinating on the floor with underwear still on.
[2019-12-08 23:08] VITALS: BP 143/76; PULSE 68; RESP 16; O2SAT 96
[2019-12-08 23:57] VITALS: BP 127/75; PULSE 68; RESP 16; O2SAT 96
[2019-12-09] VITALS (7 sets, daily range): BP systolic 145–178; BP diastolic 67–92; PULSE 63–93; RESP 14–16; O2SAT 94–100
[2019-12-09 00:17] LABS: Amphetamine Urine VISTA NEGATIVE (<1000 ng/mL); Barbiturate Urine VISTA NEGATIVE (< 200 ng/mL); Benzodiazepine Urine VISTA NEGATIVE (< 200 ng/mL); Cocaine Urine VISTA NEGATIVE (< 300 ng/mL); Ecstacy Urine VISTA NEGATIVE (< 500 ng/mL); Methadone Urine VISTA NEGATIVE (< 300 ng/mL); PCP Urine VISTA NEGATIVE (< 25 ng/mL); THC Urine VISTA NEGATIVE (< 50 ng/mL); Vista UDS pH Range 5
[2019-12-09] MEDS: Ziprasidone IM 20 MG/ML VIAL IM (03:26)
--- NOTE | 2019-12-09 07:29 | ED.RN ---
counseling center will assess pt after report. Per Matty it will be between now and 830
--- NOTE | 2019-12-09 08:39 | ED.VISSUMM ---
- ER Visit Summary Date of Service: 12/09/19 Patient was endorsed to me by the outgoing physician. I spoke with crisis at 0830, and after speaking with the patient and they agree that the patient is unable to care for himself and is having exacerbation of his psychiatric illness. They recommended placement. I did fill out a pink slip on the patient. Patient is still currently pending acceptance by a psychiatric facility at this time. This note was generated with [employer] dictation software. It may contain incorrect words, spelling, and punctuation that were not noted in review of the chart prior to signing ED Disposition - Plan for ED Patient: Referrals: Shalini Toledo MD [Primary Care Provider] -
--- NOTE | 2019-12-09 09:49 | ED.RN ---
PT WALKING AROUND ROOM 4, PT EASILY REDIRECTED.
--- NOTE | 2019-12-09 15:05 | ED.RN ---
[facility] REQUESTING PT SIGN FORM, THEY ARE AWARE THAT PT IS CONFUSED. THIS RN EXPLAINED TO PT THAT THE FORM NEEDED TO BE SIGNED, THAT THE PT WAS GOING TO ANOTHER FACILITY TO PROVIDE CARE FOR HIM.
--- NOTE | 2019-12-09 16:10 | ED.RN ---
pts daughter is aware of what is going on with pt. Pt is being transferred to [facility] just waiting on squad
--- NOTE | 2019-12-09 17:07 | ED.RN ---
[facility] REQUESTED THAT IV REMAIN IN PT INCASE THEY NEED TO MEDICATE.
== END 2019-12-09 17:23 ==
LOC: ED 19:54
PROVIDERS: Emergency Medicine; Emergency Provider Emergency Medicine; PCP Internal Medicine
DX: R41.0 Disorientation, unspecified (principal); R45.1 Restlessness and agitation; G40.909 Epilepsy, unspecified, not intractable, without status epilepticus; J44.9 Chronic obstructive pulmonary disease, unspecified; E03.9 Hypothyroidism, unspecified; F25.9 Schizoaffective disorder, unspecified; F03.90 Unspecified dementia, unspecified severity, without behavioral disturbance, psychotic disturbance, mood disturbance, and anxiety; F31.9 Bipolar disorder, unspecified; F10.20 Alcohol dependence, uncomplicated; Z79.899 Other long term (current) drug therapy; F17.200 Nicotine dependence, unspecified, uncomplicated; Z85.118 Personal history of other malignant neoplasm of bronchus and lung; Z85.21 Personal history of malignant neoplasm of larynx
CPT/HCPCS: 80048; 80076; 80164; 80307; 80320; 85025; 87635; 93005; 96372; 96374; 99285; G2023; A4216; G0480; J3486; U0003

== ENCOUNTER → 2020-01-01 17:56 | Outpatient (CLI) | payer OTHER, SELFPAY ==
[2018-06-11 13:33] VITALS: BMI 26.4
[2019-12-08 19:21] VITALS: BMI 17.9
== END ==
PROVIDERS: PCP Internal Medicine; Referring Provider Nurse Practitioner Family; Visit Provider Nurse Practitioner Family
DX: U07.1 COVID-19 (principal); J02.9 Acute pharyngitis, unspecified; Z20.828 Contact with and (suspected) exposure to other viral communicable diseases
CPT/HCPCS: 87635; 94799; C9803; U0003

== ENCOUNTER 2020-01-10 15:14 | Emergency (ER) | payer OTHER, SELFPAY ==
[2018-06-11 13:33] VITALS: BMI 26.4
[2020-01-01 17:21] VITALS: BMI 17.9
[2020-01-10 15:15] VITALS: BP 164/91; PULSE 80; RESP 16; TEMP 37.3; O2SAT 96; BMI 17.5
--- NOTE | 2020-01-10 15:35 | EKG12_ITS ---
Test Reason : Blood Pressure : / mmHG Vent. Rate : 056 BPM Atrial Rate : 056 BPM P-R Int : 156 ms QRS Dur : 072 ms QT Int : 448 ms P-R-T Axes : 085 081 068 degrees QTc Int : 432 ms Sinus bradycardia Otherwise normal ECG When compared with ECG of 08-DEC-2019 19:48, Vent. rate has decreased BY 28 BPM Confirmed by LILY ZUÑIGA ([id number]), assignment desk editor EDER BRUNER ([id number]) on 01/20/2020 2:30:18 PM Referred By: JESSI Confirmed By:LILY ZUÑIGA
--- NOTE | 2020-01-10 15:36 | ED.VIS.PSYCH ---
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 He also had a positive COVID test December 31. Patient has made many references to God, Anthony and Emma. His thought content and thought process is tangential at times, with numerous scientology references and asking for guarantee that I would talk to God. Patient is not redirectable. Patient is unable to answer questions because his answers are related to Bruno Cruz. Prior similar symptoms: No Recent Illness/Hospitalization: No Capacity - Capacity Assessment Tool Can the patient make a choice & communicate that choice?: No Can the patient understand benefits, risks and alternatives?: No Can the patient make a logical, rational choice?: No Is the choice the patient makes consistent w/ their values?: Unable to Determine Is there an impending, emergent risk to the patient?: Unable to Determine Does the patient have an Advance Directive?: Unable to Determine Is there a Surrogate Available?: No i.e. HCPOA: No i.e. close relative (spouse, child, parent, sibling)?: Yes - The charge nurse will attempt to contact Anthony and Emma. They may be on vacation per the patient. 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 (5) Bipolar 1 disorder Status: Chronic (6) COPD (chronic obstructive pulmonary disease) Status: Chronic (7) Dementia Status: Chronic (8) History of alcoholism Status: Chronic (9) Hypothyroidism Status: Chronic (10) Lung cancer Status: Chronic (11) Schizoaffective disorder Status: Chronic Past Medical History - Allergies and Home Meds Allergies/Adverse Reactions: Allergies No Known Allergies Allergy (Verified 01/10/20 15:21) Primary Care Physician: Jose Castro MD [Primary Care Provider] - Prior records reviewed: Yes Surgical History: noncontributory Lives: Alone Smoking Status: Former smoker Review of Systems ROS: Unable to Obtain Physical Exam Vital Signs/Narrative: Vital Signs Temp Pulse Resp BP Pulse Ox 01/10/20 15:15 99.2 F H 80 16 164/91 H 96 Inital Vital Signs reviewed: Yes General: Well developed, Cachectic Head: Normocephalic, Atraumatic - There is no evidence of recent trauma. Eyes: Perrl, EOMI. Negative for: Pale conjunctiva, Scleral icterus ENT: Negative for: No rhinorrhea Neck: Supple, Nontender, No lymphadenopathy, No JVD Cardiovascular: Regular rate, Regular rhythm, No murmurs, Normal S1, Normal S2 Respiratory: No distress, Chest nontender, Rales. Negative for: CTA bilaterally Abdomen: Soft, Nontender, Nondistended Rectal: Deferred Back: Normal Inspection Extremities: Nontender, Edema, Symmetric Skin: Pallor. Negative for: Cyanosis, Diaphoresis, Jaundice Neurological: Alert, Cranial nerves II-XII grossly intact, Normal Strength, Normal Sensation. Negative for: Oriented x3 Psych: Irritable, Labile, Pressured Speech, Flight of Ideas, Hallucinations, Delusions, Poor Insight, Limited Judgement Diagnostic/Tx/Re-eval Chest X-Ray - ED: 1 View, Normal, Heart, Bony Structures, - - A right hilar mass that has been noted on prior films. The area is larger and there is findings suggestive of obstructive pneumonia. Comparison film was December 07, 2019. Impressions Chest X-Ray 01/10/20 16:50 IMPRESSION: Stable right perihilar mass, previously described. No acute alveolar disease. Electronically Signed: Riley Lemus MD at 17:22 EDT Tel , Service support , Brain CT 01/10/20 17:25 IMPRESSION: No CT evidence of acute infarct or hemorrhage. No visible mass or abnormal enhancement. If there is clinical concern for hyperacute ischemia that is not evident by CT, MRI should be considered if possible. Electronically Signed: Riley Lemus MD at 18:52 EDT Tel , Service support , 01/10/20 16:50 Chest 1 View (Portable) [RAD] Stat 01/10/20 17:25 CT Head [Brain/Head W/WO Contrast] [CT] Stat Laboratory Results 01/10/20 01/10/20 01/10/20 16:15 16:15 16:15 WBC 6.6 RBC 3.71 L Hgb 12.2 L Hct 36.8 L MCV 99.2 H MCH 32.9 H MCHC 33.2 RDW Std Deviation 46.1 H RDW Coeff of Oneal 12.8 Plt Count 237 MPV 9.6 Immature Gran % (Auto) 0.300 Neut % (Auto) 85.5 H Lymph % (Auto) 8.4 L Furn[place] % (Auto) 5.3 Eos % (Auto) 0.2 Baso % (Auto) 0.3 Absolute Neuts (auto) 5.6 Absolute Lymphs (auto) 0.55 L Nucleated RBC % 0 Differential Comment SEE COMMENT Platelet Estimate ADEQUATE RBC Morphology N CHROM Anisocytosis RARE Macrocytosis RARE Sodium 142 Potassium 3.8 Chloride 108 H Carbon Dioxide 23.0 Anion Gap 11 BUN 21 H Creatinine 0.81 Estim Creat Clear Calc 70.11 Est GFR (MDRD) Af Amer 123 Est GFR (MDRD) Non-Af 102 BUN/Creatinine Ratio 26.0 H Glucose 82 Calcium 9.3 TSH 5.75 H Ur Drug Screen Comment Ethyl Alcohol 7.0 COVID-19 (HAYDEE) 01/10/20 01/10/20 16:30 18:50 WBC RBC Hgb Hct MCV MCH MCHC RDW Std Deviation RDW Coeff of Oneal Plt Count MPV Immature Gran % (Auto) Neut % (Auto) Lymph % (Auto) [place] % (Auto) Eos % (Auto) Baso % (Auto) Absolute Neuts (auto) Absolute Lymphs (auto) Nucleated RBC % Differential Comment Platelet Estimate RBC Morphology Anisocytosis Macrocytosis Sodium Potassium Chloride Carbon Dioxide Anion Gap BUN Creatinine Estim Creat Clear Calc Est GFR (MDRD) Af Amer Est GFR (MDRD) Non-Af BUN/Creatinine Ratio Glucose Calcium TSH Ur Drug Screen Comment Ethyl Alcohol COVID-19 (HAYDEE) Positive There is no acute abnormality of the head to suggest metastasis. Feel patient's altered mental status due to his psychiatric disorder and noncompliance with medication. Doubt this is COVID encephalitis. The right hilar mass is slightly more prominent than prior. Has been noted on multiple prior x-rays. This is not an indication for admission. Patient was turned down by 12 psychiatric facilities. 1 facility hospitalist to call back and they might be able to take him. Patient care will be turned over to the night physician Dr. Cintron. - EKG Initial EKG Interpretation: Sinus Rhythm - Sinus bradycardia with a ventricular rate of 56. IA interval 156 ms. QRS duration 72 ms. QT duration 448 ms. [place] is normal. Patient was medicated with 5 mg of Haldol and 2 mg Versed IM. He has been cooperative since since. Work-up was undertaken to evaluate his acute psychosis and rule out metastatic disease to his brain. Doubt this is due to COVID encephalitis. The license delinquency prevention social worker from case management has evaluated him. He is much more appropriate since receiving the Haldol and Versed. For this reason I believe his change in mental status and brenda is due to noncompliance of his medication and exacerbation of his bipolar affective disorder and not a metabolic or infectious cause. ED Disposition - Plan for ED Patient: Diagnosis: COVID-19 virus detected, Bipolar I disorder with brenda, Psychosis, affective, Sinus bradycardia Referrals: Jose Castro MD [Primary Care Provider] -
[2020-01-10] MEDS: Midazolam 2 MG/2 ML Syringe IM (15:37)
[2020-01-10] MEDS: Haloperidol Lactate 5 MG/ML Vial IM (15:37)
[2020-01-10 15:38] VITALS: BP 135/91; PULSE 109; RESP 20; O2SAT 98
[2020-01-10 16:00] VITALS: BP 127/79; PULSE 89; RESP 18
--- NOTE | 2020-01-10 16:04 | ED.RN ---
PT REFUSED TO ALLOW STAFF TO CHECK HIS VITAL SIGNS. PT REFUSING TO PUT GOWN ON. PT STATES GOD SAID YOU CAN'T TOUCH MY FINGERS. DO YOU HEAR GOD? IS IT OK? PT WAS INFORMED THAT HIS FAMILY WANTS HIM TO HAVE HIS VITAL SIGNS CHECKED AND HIM TO GET INTO A GOWN. AFTER A LOT OF CONVINCING, PT RELUCTANTLY ALLOWED STAFF TO GIVE HIM MEDICATIONS. STAFF CONVINCED PT TO GET INTO A GOWN. THIS NURSE AND MICHELLE RN IN THE ROOM PT STATES THERE WAS A 5 FOOT CHESTNUT. SHE WAS BEAUTIFUL. MY FIRST DIDN'T UNDERSTAND 4 WAYS OF [place] AND THEN HER JAW. THERE WERE KITTENS THERE. PT DIFFICULT TO REDIRECT. PT STATES NO YOU CAN'T DRAW MY BLOOD UNTIL I FEEL MY BLOOD. IT IS GOING OVER THE DAM. MY HEART STOPPED THREE TIMES. I HAVE TO TELL YOU ABOUT MY HEART. IT STOPPED RIGHT NOW. CAN YOU SEE IT STOPPED? STAFF REASSURED THE PT THAT HIS HEART IS IN FACT BEATING. AFTER 45 MINUTES OF TALKING WITH THE STAFF CONVINCED THE PT TO ALLOW AN IV TO BE STARTED AND BLOOD TO BE DRAWN. DURING THE 45 MINUTES OF TALKING PT HAD FLIGHT OF IDEAS AND WOULD JUMP FROM SUBJECT TO SUBJECT. VERY DIFFICULT TO UNDERSTAND AND FOLLOW.
[2020-01-10 16:35] LABS: Absolute Lymphocyte Count 0.55 X10^3/uL (0.83-4.51); Absolute Neutrophil Count 5.6 X10^3/uL (2.0-7.7); Basophil# 0.02 X10^3/uL; Basophil% 0.3 % (0-1); Eosinophil# 0.01 X10^3/uL; Eosinophils% 0.2 % (0-5); Hematocrit 36.8 % (40-54); Hemoglobin 12.2 g/dL (13.0-16.5); Lymphocyte # 0.55 X10^3/ul (4.0); Lymphocyte % 8.4 % (19-41); Mean Corp Hgb Conc 33.2 g/dL (32-36); Mean Corpuscular Hgb 32.9 pg (27.0-32.0); Mean Corpuscular Volume 99.2 fL (80-94); Mean Platelet Vol. 9.6 fl (6.2-12.0); Monocyte# 0.35 X10^3/uL; Monocyte% 5.3 % (0-10); NRBC Flagged by Analyzer 0 % (0-5); Neutrophil # 5.62 X10^3/uL (2.7-7.7); Neutrophil % 85.5 % (47-70); POSITIVE DIFFERENTIAL YES; Platelet Count 237 K/mm3 (150-450); RBC Distribution Width CV 12.8 % (11.6-14.6); RBC Distribution Width SD 46.1 fl (35.1-43.9); Red Blood Count 3.71 M/mm3 (4.6-6.2); White Blood Count 6.6 K/mm3 (4.4-11.0)
[2020-01-10 16:36] LABS: Differential Indicated SCAN CRITERIA MET
--- NOTE | 2020-01-10 16:50 | RAD_ITS ---
STUDY: X-RAY CHEST REASON FOR EXAM: Male, 64 years old. cough, rales, COVID positive TECHNIQUE: Single frontal view of the chest. COMPARISON: 12/07/2019 chest x-ray, 11/21/2019 CT FINDINGS: The lungs are clear and expanded. There is no demonstrated pleural abnormality. Normal size heart. Stable right perihilar mass, previously described. Normal visualized pulmonary arteries. Normal visualized aortic arch and descending thoracic aorta. Normal visualized thoracic spine. Normal visualized ribs, clavicles, and shoulders. There is no demonstrated abnormality of the visualized soft tissue structures of the upper abdomen. RAD/Chest 1 View (Portable) IMPRESSION: Stable right perihilar mass, previously described. No acute alveolar disease. Electronically Signed: Riley Lemus MD at 17:22 EDT Tel , Service support ,
[2020-01-10 16:58] LABS: Anion Gap 11 (5-15); BUN 21 mg/dL (7-18); Calcium,Total 9.3 mg/dL (8.5-10.1); Chloride 108 mmol/L (98-107); Creatinine, Serum 0.81 mg/dL (0.70-1.30); EST Glomerular Filtration Rate 102 mL/min (>60); Est Glom Filt Rate - Afr Amer 123 mL/min (>60); Estimated Creatinine Clearance 70.11 ml/min; Glucose 82 mg/dL (74-106); Potassium 3.8 mmol/L (3.5-5.1); Sodium Level 142 mmol/L (136-145); Thyroid Stim Hormone (TSH) 5.75 uIU/mL (0.358-3.74)
[2020-01-10 17:16] LABS: Anisocytosis RARE; Macrocytosis RARE; Platelet Estimate ADEQUATE (ADEQ); Red Cell Morphology N CHROM NORMAL (NORM C&C)
--- NOTE | 2020-01-10 17:25 | CT_ITS ---
STUDY: CT BRAIN WITH AND WITHOUT CONTRAST REASON FOR EXAM: Male, 64 years old. ? METS TO BRAIN FROM LUNG/THROAT CANCER. ALTERED MENTAL STATUS RADIATION DOSAGE (If Supplied By Facility): CTDIvol = ( 44.99 ) mGy, DLP = ( 1886.33 ) mGycm TECHNIQUE: Transaxial CT imaging of the brain was performed pre and post contrast administration. The examination was performed with intravenous administration of IV 50mL Isovue-370. Individualized dose optimization techniques were used for this CT. COMPARISON: 12/07/2019 FINDINGS: Normal soft tissue structures. Normal calvarium. Normal size ventricles and extra-axial spaces for the patient''s age. There are areas of decreased attenuation within the white matter tracts of the supratentorial brain, consistent with microvascular disease changes. Normal age-related changes of the basal ganglia. Normal brainstem. Normal cerebellum. There is no intracranial hemorrhage. There are no findings of an acute ischemic infarction. Normal visualized paranasal sinuses. CT/Brain/Head W/WO Contrast IMPRESSION: No CT evidence of acute infarct or hemorrhage. No visible mass or abnormal enhancement. If there is clinical concern for hyperacute ischemia that is not evident by CT, MRI should be considered if possible. Electronically Signed: Riley Lemus MD at 18:52 EDT Tel , Service support ,
[2020-01-10 17:27] VITALS: BP 140/72; PULSE 56; RESP 14; O2SAT 98
[2020-01-10 17:37] LABS: Probe Check PASS
[2020-01-10 18:53] LABS: Bacteria 0 SEEN /hpf (None Seen); Mucous, Urine 0 SEEN /hpf (<or=2+); Red Blood Cells-Urine 0 SEEN /hpf (0-5); Squamous Epithelial Cells - UA 0 SEEN /hpf (0-5)
[2020-01-10 19:13] LABS: Color, Urine Yellow (Yellow); Glucose, Dipstick Normal (Normal); Leukocyte Esterase-Dipstick Negative /ul (Negative); Nitrite-Dipstick Negative (Negative); Occult Blood-Urine Negative /ul (Negative); Protein-Dipstick 30 mg/dl (Negative); Urine Clarity Clear (Clear); Urine Urobilinogen 4 mg/dl (Normal)
[2020-01-10 19:15] LABS: Ketone-Dipstick 150 mg/dl (Negative); Urine Bilirubin Dipstick 1 mg/dL (Negative)
[2020-01-10 19:20] LABS: White Blood Cells 0-5 SEEN /hpf (0-5)
[2020-01-10 19:24] LABS: Amphetamine Urine VISTA NEGATIVE (<1000 ng/mL); Barbiturate Urine VISTA NEGATIVE (< 200 ng/mL); Benzodiazepine Urine VISTA POSITIVE (< 200 ng/mL); Cocaine Urine VISTA NEGATIVE (< 300 ng/mL); Ecstacy Urine VISTA NEGATIVE (< 500 ng/mL); Methadone Urine VISTA NEGATIVE (< 300 ng/mL); PCP Urine VISTA NEGATIVE (< 25 ng/mL); THC Urine VISTA NEGATIVE (< 50 ng/mL); Vista UDS pH Range 5
--- NOTE | 2020-01-10 20:00 | CM.ED ---
Social Work Consult: Mental Health Informant: Dr. Caballero Chief Complaint: Patient presenting with bizarre behaviors. Patient pink slipped by Police. Per Police report patient has not been acting right and family called to have police check on patient. Marital/Social History: Living Situation: Has lived in own apartment for the past 2-3 months. Patient was not living independent prior to having own apartment. Per family report patient was doing well on medication and this is what triggered patient to get own apartment and try things on his own. Support/Resources: Active with psychiatric services with [facility]. Education/Employment: Disability. Mental Health Treatment/History: Bi-polar I disorder with brenda, Schizoaffective Disorder. Patient is prescribed medications but reporting to not be taking medications. Patient also states to not be taking care of self. protective services officer confirming that patient home is unkept and there are concerns of patient being able to care for self. Patient does have a history of inpatient psychiatric placement with last placement being on 12/09/2019 to [facility]. Triggers/Stressors: Not taking medications. Coping Skills: Did not assess Abuse Issues: Unable to assess Substance Abuse/Use: Unable to assess. Patient tox screen positive for Benzodiazepines, patient was medicated with Versed and Haldol prior to obtaining lab work in order to stabilize patient. Risk to Self/Others: Patient denies any suicidal thoughts/plans/intents. Patient denies any homicidal thoughts/plans/intents. Mental Status Exam: A&Ox3 Appearance/General Behavior: Disheveled. Unkept. Calm. Mood/Affect: Bizarre. Communication Pattern: Responds to questions. Mumbling. Nonsensical at times. Tangential. Thought Process: Fragmented. Requires multiple redirection. Judgement: Poor Assessment: Met with patient in room. Introduced self and secondary social studies teacher role. Patient agreeable to speak with this secondary social studies teacher. Patient resting pleasantly in bed. Patient smiling at this secondary social studies teacher. Patient states to not be taking care of self and to not be taking medications. Patient states things are not going well. Per the pink slip patient appeared to be in poor physical health as a result of his mental health issues. Patient's apartment was noted to be in disarray and he was hallucinating while speaking with the police shift commander that pink slipped patient. Patient was also having difficulty formulating coherent thoughts/sentences. This secondary social studies teacher also observing patient having difficulty formulating sentences/thoughts. Collaborating with Dr. Caballero. Patient is medically cleared but testing positive for COVID-19. Patient with positive COVID-19 test on 01/01/2020 (10 days ago) and patient continues to have positive COVID-[address] Caballero confirms that patient is medically cleared. Per Dr. Caballero only symptom that patient is presenting with is a cough and patient smoked tobacco daily, hard to differentiate between cough due to COVID-19 or cough due to tobacco use. PLAN: Facilitate Placement. Ashlee Lewis MSW, ULYSSES
--- NOTE | 2020-01-10 20:15 | CM.ED ---
Social Work Telephone call to [facility], [place]. Not accepting positive COVID-19 patients. Telephone call to Safia Anderson. Not accepting positive COVID-19 patients. Telephone call to Neva Rodas. Not accepting positive COVID-19 patients. Telephone call to Michelle Dueñas. Not accepting positive COVID-19 patients. [facility]. [facility] positive [facility] patients. [facility] Not accepting positive [facility] patients. Telephone call to [facility], no intake currently in. Voicemail left. [facility] to [facility], no intake currently in. Voicemail left. [facility]. [facility] positive COVID-19 patients. Telephone call to Giss[facility] Silva. Not accepting positive COVID-19 patients. Telephone call to [facility]iella Bates. Daniella reports that the facility has discussed what the plan would be for a positive COVID-19 patient. Daniella states to not be sure if this will be an option at this time or not. Daniella is checking with supervisor carding and will get back to this certified social workers in health care. Updated medical team on above information. Ashlee VERA, ULYSSES
--- NOTE | 2020-01-10 20:17 | ED.RN ---
spoke with sister at this time and updated her on plan of care. Sister is aware and agrees with plan of care at this time
--- NOTE | 2020-01-10 20:36 | CM.ED ---
Social Work Telephone call from Daniella Bates. Daniella reports that while the facility is open to accepting positive COVID-19 patients they are currently unable to accommodate due to current census. Daniella encouraging this nursing home social worker to continue to call daily to check on possible changes and ability to be able to accept patient. Telephone call to patient daughter, Eve. No answer and unable to leave message due to voicemail box being full. Update medical team. Ashlee VERA, ULYSSES
[2020-01-10 20:42] VITALS: RESP 18
[2020-01-10 20:56] VITALS: BP 144/93; PULSE 105; RESP 20; TEMP 36.6; O2SAT 99
--- NOTE | 2020-01-10 22:24 | CM.ED ---
[facility] Updated on patient current status and difficulty with placement. Inquiring about possible option of mental health board getting involved. Sena reports plan to reach out to electronic maintenance supervisor, Steffi on situation. This executive secretary social welfare attempting to obtain medical list for patient. Per Sena's report patient the [facility] does not have an active medication list for patient and have reached out to [facility] to obtain this with no response as of yet. Sena fully updated on case. Clinical information faxed to [facility]. Crisis to continue to follow to facilitate placement. Medical team updated. Ashlee Lewis MACHINE DYER, ULYSSES
--- NOTE | 2020-01-10 22:32 | CM.ED ---
Social Work Telephone call to [facility] as this is the last facility that patient was in to inquire about possible medication list. This renal social worker spoke with Rene. Rene states that that office is closed and will not open until Monday. Rene unable to provide medication list for patient. Updated medical team. Ashlee VERA, ULYSSES
[2020-01-11] VITALS (9 sets, daily range): BP systolic 149–182; BP diastolic 73–112; PULSE 72–121; RESP 14–18; TEMP 35.8–36.4; O2SAT 97–100
[2020-01-11] MEDS: Haloperidol Lactate 5 MG/ML Vial IM (01:17)
[2020-01-11] MEDS: Midazolam 2 MG/2 ML Syringe IM (01:18)
--- NOTE | 2020-01-11 01:18 | ED.RN ---
patient heard yelling in the room. Patient not easily redirected. Patient yelling and trying to grab staff. Patient ripping off all cloths. Patient will stay in bed but attempted to throw coffee at the nursing staff. Patient at this time given medication due to inability to redirect and not willing to answer questions. Patient physically aggressive towards staff. Patient back in the bed at this time. Patient allows nurse to give medication without any issues. At this time patient in bed resting after medication.
--- NOTE | 2020-01-11 10:30 | CM.ED ---
SOCIAL WORK Spoke with Nuvia from Crisis. Nuvia reports will continue to work on finding placement for patient. Nuvia states [facility]'s APPLICATIONS ENGINEER MANUFACTURING, Dr. Thrasher has been updated on issues with finding placement for patient due to positive COVID-19 test. Nuvia reports will also be updating Dipti Banks with the Mental Health Board. Nuvia requesting additional information be faxed at this time. Requested information faxed for placement. Ju Best, GAMES DEALER, SECURITY PUBLIC SAFETY OFFICER
--- NOTE | 2020-01-11 12:15 | CM.ED ---
SOCIAL WORK Received call from Nuvia with update on placement. Nuvia reports continues to attempt referral for placement. Nuvia states patient has been denied at [facility], [facility], and [facility]. Nuvai reports plan to continue to contact hospitals and will continue to update this worker. Ju Best, LEAD WELDER, COMMISSIONING EDITOR
--- NOTE | 2020-01-11 12:53 | CM.ED ---
SOCIAL WORK Received call from Nuvia with Crisis. Per Nuvia, spoke with [facility] and was informed they do have a psych COVID Unit, but will only accept referrals during day shift, Monday-Monday only. Nuvia states if unable to find placement this weekend, will follow up with [facility] on Monday. Ju Best, TAB BUILDER, PACKING AND FINAL ASSEMBLY SUPERVISOR
--- NOTE | 2020-01-11 14:00 | CM.ED ---
SOCIAL WORK Received call from Nuvia with Crisis. Patient has been denied at [facility], [place], [facility], [facility], [facility], and [facility]. Nuvia reports has left messages at [place]. Nuvia states awaiting call back from [facility] at this time.
--- NOTE | 2020-01-11 15:00 | CM.ED ---
SOCIAL WORK Received call from Nuvia with Crisis. [place] and [place] have denied patient. Nuvia reports has left message with patient's insurance. Nuvia has placed call to [place] to inquire about possible placement and per form worker, has been advised by the state to not accept positive COVID patients. Nuvia to follow up with [facility]. Nuvia requesting updated nursing notes and [facility] has spoken with [facility] and they are willing to review referral. Updated nursing notes to be faxed per request. Ju Best, VIDEO GAME TESTER, RISK OFFICER
--- NOTE | 2020-01-11 15:13 | ED.RN ---
Patient resting quietly in bed without signs of distress. Patient ate about 40% of lunch tray. Patient denies any needs at this time. will continue to monitor.
--- NOTE | 2020-01-11 15:20 | CM.ED ---
SOCIAL WORK Updated nursing notes faxed to Nuvia with Crisis at this time. Ju Best, HUMANITIES PROFESSOR, ASSOCIATE PROFESSOR PHYSICIAN
--- NOTE | 2020-01-11 18:11 | CM.ED ---
SOCIAL WORK Received call from [place] with Crisis. Per Nuvia, all information has been faxed to [facility] and is awaiting them to review referral. [facility] has spoken with Dipti Banks with Mental Health Board who has been fully updated on situation and placement issues.
--- NOTE | 2020-01-11 18:54 | ED.RN ---
This nurse spoke with the patient's sister, Emma, and gave update on patient. Emma requests to be notified of any updates.
--- NOTE | 2020-01-11 20:38 | CM.ED ---
SOCIAL WORK Received call from Zamzam with [facility]. Per Zamzam, will be unable to accept patient this weekend due to psych emergency with another patient, staffing issues. Zamzam reports physician is going to make patient a top priority for Monday morning to review. Zamzam reports will follow up Monday. Staff and crisis team updated. Plan: Pending placement Ju Best, PRESCHOOL ADVISER, EXECUTIVE ASSISTANT TO PRESIDENT
[2020-01-11] MEDS: Oxybutynin 5 MG Tablet PO (22:41)
[2020-01-11] MEDS: lamoTRIgine 100 MG Tablet PO (22:41)
--- NOTE | 2020-01-11 23:53 | ED.RN ---
AT 2241 THIS NURSE ATTEMPTED TO ADMINISTER PT HOME MEDS PT TOOK ONLY CERTAIN MEDS AND REFUSED THE REST. MD AWARE. PT RESTING IN A POSITION OF COMFORT WITH NO FURTHER NEEDS AT THIS TIME.
[2020-01-12] VITALS (17 sets, daily range): BP systolic 115–191; BP diastolic 73–100; PULSE 52–102; RESP 15–28; O2SAT 97–99
[2020-01-12] MEDS: Midazolam 2 MG/2 ML Syringe IM (02:23)
[2020-01-12] MEDS: Haloperidol Lactate 5 MG/ML Vial IM (02:23)
[2020-01-12] MEDS: Levothyroxine 25 MCG TABLET PO (08:17)
[2020-01-12] MEDS: Oxybutynin 5 MG Tablet PO (08:17)
[2020-01-12] MEDS: Haloperidol 5 MG Tablet PO (08:18)
[2020-01-12] MEDS: lamoTRIgine 100 MG Tablet PO (10:42)
[2020-01-13] VITALS (9 sets, daily range): BP systolic 140–161; BP diastolic 62–106; PULSE 71–94; RESP 15–18; TEMP 36.8–37.2; O2SAT 97–98
[2020-01-13] MEDS: Haloperidol Lactate 5 MG/ML Vial IM (03:13)
[2020-01-13] MEDS: Midazolam 2 MG/2 ML Syringe IM (03:16)
--- NOTE | 2020-01-13 11:17 | CM.ED ---
SOCIAL WORK Updated by nursing, [facility] recommending call back this afternoon. Call to Crisis, spoke with Lucille. Per [facility] informed unable to accommodate COVID-19 positive patient. Lucille alas will be calling [facility] this afternoon to check on bed availability. Ju Best, MANAGER MAC, FREIGHT BREAKER
[2020-01-13] MEDS: lamoTRIgine 100 MG Tablet PO (11:38)
[2020-01-13] MEDS: Levothyroxine 25 MCG TABLET PO (11:38)
--- NOTE | 2020-01-13 17:57 | CM.ED ---
SOCIAL WORK Updated by Sena with Crisis, no luck with placement at this time. Mental Health Board is aware of issues with placement due to patient's positive COVID-19 test. Crisis to continue to work on disposition for patient. Ju Best, BELT WORKER, CREW TRUCK DRIVER
[2020-01-14] VITALS (10 sets, daily range): BP systolic 133–172; BP diastolic 87–100; PULSE 81–110; RESP 16–18; O2SAT 96–98
[2020-01-14] MEDS: Ibuprofen 600 MG Tablet PO (00:52)
--- NOTE | 2020-01-14 01:08 | ED.RN ---
Patient complaining of leg and back pain at this time. Patient given motrin with applesauce at this time. Patient denies any other complaints. Room cleaned up trash removed. Patient given warm blanket
--- NOTE | 2020-01-14 04:39 | ED.RN ---
pt has remained awake all night and has came to his room door and banged on the window.pt usually asking for his urinal to be emptied or a warm blanket.
[2020-01-14] MEDS: lamoTRIgine 100 MG Tablet PO (09:02)
[2020-01-14] MEDS: Levothyroxine 25 MCG TABLET PO (09:02)
--- NOTE | 2020-01-14 10:07 | ED.RN ---
THIS NURSE SPOKE WITH CRISIS, DECLINED PT. THEY ARE THE ONLY HOSPITAL AROUND ACCEPTING COVID + PATIENTS. THEY WILL CONTINUE TO CALL [facility]
--- NOTE | 2020-01-14 15:30 | CM.ED ---
Social Work Telephone call to [facility], Sena. This medical social worker inquiring if crisis has reached out to again. Sena plans to contact again today. Per crisis notes from yesterday, patient was declined due to not having any open beds. Will continue to follow and assist as possible. Ashlee VERA, ULYSSES
--- NOTE | 2020-01-14 16:22 | CM.ED ---
Social Work Telephone call to [facility] to attempt to obtain a medication list. [facility] to call this elementary school social worker back. Ashlee VERA, ULYSSES
--- NOTE | 2020-01-14 17:43 | CM.ED ---
Social Work Telephone call from Chacho Quinones. Chacho states to have no discharge medication as patient was transferred to [facility] on December 26, 2019 due to patient testing positive for COVID-19. Per Joni patient was then seen by psychiatric services at [facility] and cleared to discharge to the community due to patient being own person. This social media developer updated medical team and crisis services on above information. Ashlee VERA, ULYSSES
--- NOTE | 2020-01-14 18:45 | CM.ED ---
Addendum entered by Jami Lewis 01/14/20 21:00: To be added to below note: Leticia states that patient does not have an active psychiatrist in the community and was working towards getting one set up through the [facility]. Leticia states that patient primary care physician, Dr. Castro has been managing patient medications (Remeron and Lamictal). Leticia states that longer term plan is for patient to be able to get in a correction setting as patient has had difficulty managing own mental health in the community. Leticia states [facility] was helping with this. Leticia educated that a placement to a correction takes time, several months and is a process. Original Note: Social Work Telephone call from patient daughter, Leticia. Leticia inquiring about how patient is doing as patient has attempted to call Leticia 7 times in a 15min period. Leticia states to have spoken with patient but he is not making much sense. This criminal justice social worker going to patient room and checking on patient, patient calmly sitting in bed and looking down at hands. Leticia updated on patient status. Leticia thanking this criminal justice social worker and is supportive of psychiatric placement as he is not taking care of himself. Leticia states to have attempted to advocate for patient when patient was at [facility] for placement but they cleared him. Leticia states to believe that patient has not bee stable for some time. Active support and listening provided to Leticia. Ashlee Lewis MSW, ULYSSES
--- NOTE | 2020-01-14 20:18 | ED.RN ---
patients information and chart has been faxed to for possible admission by counseling center
[2020-01-15] VITALS (9 sets, daily range): BP systolic 124–158; BP diastolic 78–91; PULSE 74–89; RESP 16–20; TEMP 36.6–36.7; O2SAT 95–100
[2020-01-15] MEDS: Levothyroxine 25 MCG TABLET PO (10:35)
[2020-01-15] MEDS: lamoTRIgine 100 MG Tablet PO (10:35)
--- NOTE | 2020-01-15 12:30 | CM.ED ---
Social Work Emergency department Reason for intervention: Phone calls received from patient's daughter Eve Dacosta ([phone]) and patient's sister Emma Doss ([phone]) Summary: This filing writer received phone call from patient's daughter Eve informing this filing writer had spoken to the emergency department healthcare social worker Jami Lewis on 01/14/2020. Eve reports patient has been in and out of the hospital since December, and has not been doing well emotionally. Eve reports calling in today because learned that patient has not paid rent in 2 months, and owes $1200 by 01/17/2020 or will be evicted. Eve inquired whether a expert eval could be written stating that patient is incompetent, as well as wonders if a letter can be written requesting an extension for patient to pay his rent. Eve discussed difficulties with patient having COVID and how this has limited to patient having any visitors, or oversight. Eve shared that patient has a long history of bipolar disorder, since Eve was 7 years old (and reports to be 21 now). Eve also reports at one point patient had a legal guardian, and was placed in a fci. 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 Patient's guardianship was reportedly absolved in 2018 and patient was released from the fci back to the community in March 2018. This filing writer agreed to check with staff as to whether a letter could be written about an extension on his rent. Educated that typical typically an expert evaluation is done by a psychiatrist rather than and the emergency room doctor. Also suggested the patient's primary care physician as another outlet for a statement of expert evaluation. Eve reports she and the patient's sister have been throwing around the idea of applying for guardianship again for this patient. Shortly after phone call with Eve, received phone call from a woman, Emma Doss, identifying herself as patient's sister. Patient's sister Emma conveyed similar information as Eve. Emma expressed patient is about to be evicted, and requesting some type of statements from the doctor or the nurse saying that patient is incompetent. Educated that the emergency department does not typically fill out expert evaluations but that this filing writer would look into concerns. Inquired whether Emma has spoken to Eve recently and informed Emma this filing writer just spoke with Eve. Emma reports she will connect with Eve to discuss. Emma also reports to have found a carbon copy check that the patient wrote for what appears to be 2 months of rent, but cannot find the check anywhere. Emma does plan to search patient's apartment again for the check. Assessment: This filing writer did not speak with the patient this date. Patient continues to be in isolation for COVID positive status, and is being retested today for COVID. Family calling in presenting as concern for the patient, and wanting to assure that patient does not become homeless. Intervention: Supportive listening offered to the family. Answered questions as able while respecting patient's privacy. Plan: We will follow-up on rent and housing concerns throughout the day. -LILIANA Cervantes, PROFESSOR OF MECHANICAL ENGINEERING *Information documented in this note generated via [employer] system*
--- NOTE | 2020-01-15 13:38 | ED.RN ---
pt encouraged aka directed to wash. pt given clean scrubs, hair cleaning solutions, tooth brush and toothpaste.
--- NOTE | 2020-01-15 14:04 | ED.RN ---
thd rn continues to direct pt to clean up and put on clean clothes. pt becoming agitated. states i don't have time for this shit this rn reminded pt that he is expected to change into fresh clothing provided
--- NOTE | 2020-01-15 15:28 | ED.RN ---
THIS RN TALKED WITH MEHREEN FROM CRISES. PT HAS BEEN DENIED FOR THE SECOND TIME BY [facility] STATING THAT THE Y HAVE NO ADULT COVID MENTAL HEALTH BEDS. THIS RN TAKED WITH RC WHO TALKED WITH PT [id number] REGARDING A RENT CHECK AND CLEAN CLOTHING FOR PT. MEHREEN STATES PT WILL REMAIN HERE AND PLAN WILL BE TO CHECK WITH HOSPITALS DAILY FOR OPEN BEDS
--- NOTE | 2020-01-15 16:40 | CM.ED ---
Social Work Emergency department Reason for intervention: Concerns for patient's possible eviction on 01/17/2020 Summary: Call patient's daughter Eve at [phone]. Spoke with daughter about the possibility of bringing patient's checkbook into the hospital so a new check could be written. Discussed with Eve that received a phone call from patient's Sister Emma who conveyed that patient previously wrote a check dated 01/04/2020 for 2 months worth of rent. This sql report writer discussed that as the patient previously wrote a check for 2 months worth of rent, prior to coming into the emergency department, it can be inferred that patient wants to keep his home and wants to pay rent. Inquired with Eve as to whether clothing can be brought in for the patient. This sql report writer was able to speak with patient via phone and standing outside of patient's room so that could see patient while speaking. Educated patient that he is about to be evicted. Patient voiced remembering that he wrote a rent check for 2 months, and got it ready to mail, but does not remember if the check was actually mailed or not. Patient stated I am in mess. Reinforced with the patient that homelessness will happen if rent is not paid before the 14th. Inquired with the patient as to whether patient would want to do. Patient voiced that wants to take care of his rent. Patient voiced verbal agreement for this sql report writer to speak with both patient's sister, and patient's daughter about the situation. Patient expressed appreciation for social service assistant trying to help. Called daughter Eve back and updated conversation. Eve reports she will go ahead and call patient's Sister Emma about the clothing. Patient Sister Emma presented to emergency room with clothing and patient's checkbook. This sql report writer along with wire charger got the checkbook to patient. Patient was able to calculate how much 2 months of rent was but did need to be reminded about the late fees that were present. Patient able to voice knowledge of how much the monthly late fee is. Patient was able to write a check for 2 months of rent. Patient stated he was okay to provide the checkbook back to patient's Sister Emma. Met with Emma provided information as requested by the patient. While in this sql report writer's presence, Emma called patient's landlord to see how late the office was open so that rent could be taking care of. Assessment: Patient was alert and oriented to the month, the day, and the year. Patient was cooperative with this sql report writer, and appeared to understand that and eviction from his home would not benefit patient in the future. Patient had shown previous intent to have the rent paid up, as evidence by writing the check previously. Patient appearing to need help to get the rent check where it needs to be, as evidenced by patient voicing that does not remember what did with the rent check. Patient did not hesitate in agreement regarding this sql report writer speaking with patient's daughter or sister. Patient's family presenting as concerned for the patient, as evidenced by wanting to ensure patient does not become homeless while in the hospital seeking treatment. Patient's COVID positive status is impeding psychiatric placement at this time. This sql report writer is aware that the local mental health center is actively seeking options for psychiatric placement, as well as working with local and state agencies to determine what the options are for this patient. Intervention: Coordination between patient, family, and emergency department staff. Assisted patient with his wishes to ensure his rent check was paid up. Plan: [facility] continues to try and work on psychiatric placement for this patient, and collaborating with various community and state agencies on what can be done for this patient. Hospital social work does remain available as needed. -LILIANA Cervantes MSW *Information documented in this note generated via [employer] system*
--- NOTE | 2020-01-15 19:28 | ED.RN ---
THIS NURSE SPOKE WITH LEXY AND LINH FROM [facility]. THEY CONTACTED [facility] TO SEE ABOUT ADMISSION. AN EMPLOYEE FROM [facility] STOPPED AT THE [facility] AND [facility] ER OFFERING TO ADMIT THE PATIENT. LINH AND LEXY HAVE ALSO BEEN WORKING WITH [facility] AND KASHMIR. KASHMIR IS THE DIRECTOR OF THE [place] BOARD OF MENTAL HEALTH AND ADDICTION. KASHMIR WILL BE MEETING WITH [employer]OV[employer] TOMORROW (01/15) ([facility]) TO SEEK ASSISTANCE. THEY WILL ALSO BE FILING FOR AN INJUNCTION THROUGH [place] [facility]. THEY HAVE ALSO LEFT A MESSAGE FOR THE PATIENT MANAGER BANKING AT [facility] TO ATTEMPT TO ASSIST IN GETTING THE PT ADMITTED TO . THEY WILL CONTACT US TOMORROW (01/15) WITH UPDATES.
[2020-01-16] VITALS (10 sets, daily range): BP systolic 138–141; BP diastolic 86–97; PULSE 85–114; RESP 14–18; TEMP 36.7–36.8; O2SAT 99–100
[2020-01-16] MEDS: Levothyroxine 25 MCG TABLET PO (06:26)
[2020-01-16] MEDS: lamoTRIgine 100 MG Tablet PO (08:02)
--- NOTE | 2020-01-16 10:13 | ED.RN ---
MEHREEN FROM [facility] CALLED AND ASKED FOR A FAXED COPY OF CURRENT CHART SO THEY CAN SEND IT TO [facility].
--- NOTE | 2020-01-16 10:46 | ED.RN ---
MEHREEN FROM CRISIS CALLED AND INFORMED US THAT [facility] CLAIMED TO HAVE COVID POSITIVE MENTAL HEALTH BEDS AVAILABLE. THEY ARE REVIEWING THE CASE AT THIS TIME.
--- NOTE | 2020-01-16 10:53 | CM.ED ---
Social Work Telephone call from Letciia Win. Leticia reports that currently has several COVID-19 positive psychiatric beds open. Leticia requesting for social work evaluation to be faxed to at [phone]. Social Work evaluation faxed to at this time. Medical team updated. Ashlee VERA, ULYSSES
--- NOTE | 2020-01-16 14:57 | CM.ED ---
Social Work Telephone call from Quirino, Nuvia. is currently working on closing COVID-19 unit and are not accepting outside referrals. is declining patient. Nuvia is head of crisis team and plans to continue to reach out to state representatives in advocating for patient case. Nuvia with no current direction or solution on case and no known psychiatric facility is accepting positive COVID-19 patients. Nuvia plans to continue to advocate for patient and will keep [facility] ED updated as possible. Nuvia also spoke with patient advocate, Maura Li in regards to patient. Per Maura patient was evaluated by psychiatric services on 01/28/2020 and determined that patient is base line manic. Nuvia expressed safety concerns of patient being positive COVID-19 and unable to follow directions of keeping self and others safe due to manic state as patient was positive COVID-19 on 01/28/2020. Nuvia reports that Maura had no answer to this. Nuvia will continue to be working on case and attempt for placement of patient. Per nursing staff patient continues with bizarre, manic behavior. Will continue to follow as needed. Ashlee Lewis MSW, ULYSSES
--- NOTE | 2020-01-16 17:11 | CM.ED ---
Social Work Patient daughter, Leticia inquiring about current status of case. Leticia updated on current status of placement. Leticia with multiple concerns of patient returning to home and patient being unable to care for self. Leticia states that patient is not able to meet own needs in the community due to unmanaged mental health. This social media intern updating Leticia that current plan is not for discharge to home, but for placement for stabilization. Leticia states to be relieved that patient is not going to be discharged to the community. Leticia with no further questions. Support provided. Ashlee Lewis MSW, ULYSSES
--- NOTE | 2020-01-16 17:29 | CM.ED ---
Social Work Telephone call from Quirino, Nuvia Miles. Nuvia reports to have called [facility] in [place] and [facility] not accepting COVID-19 patients. [facility] plan to continue to work on case. Ashlee VERA, ULYSSES
[2020-01-17] VITALS (8 sets, daily range): BP systolic 134–156; BP diastolic 89–111; PULSE 68–118; RESP 15–18; TEMP 36.5–36.8; O2SAT 95–99
[2020-01-17] MEDS: Levothyroxine 25 MCG TABLET PO (06:57)
[2020-01-17] MEDS: Ibuprofen 600 MG Tablet PO ×2 (08:40→20:06)
--- NOTE | 2020-01-17 09:34 | ED.RN ---
PT C/O BACK PAIN AND STIFFNESS. REPORTED TO PHYSICIAN AND PT GIVEN MEDICATION PER MAR. PT DENIES FURTHER NEEDS AT THIS TIME.
--- NOTE | 2020-01-17 11:16 | CM.ED ---
Social Work Voicemail received from Nuvia Miles, Chief Clinical Officer at [facility]. Nuvia states to have put a voicemail out to APS as per medical records from [facility] a consult was put in to [facility]. Per [facility] patient has had 5 guardians over the past 30 years and was living in a correction for 30 years. Patient has lived on own for the pasts 1 1/2 years and has not been managing. An expert eval was completed at [facility] and it was determined that patient continues to need a guardian. Patient family is not willing to take guardianship and that is why APS was called. [facility] medical chart states that patient did present on 12/28/2019 at tangential in thinking and patient requires refocussing when having conversation. It was determined that patient was Manic as baseline and patient was discharged to the community on 12/28/2019. [facility] also notes that patient was cleared by psychiatric services but it is unclear if [facility] completed the assessment for if [facility] was going off of [facility] report, as patient was at [facility] prior. [facility] plan to continue to follow case and call this social service assistant with any solutions or action plans. Telephone call received from Carolyn at [facility]. Carolyn states to have spoken with Nuvia Miles about patient case. Carolyn states that [facility] has not been able to make contact with patient due to patient having COVID-19 and not responding to phone calls. [facility] plan to update local prosecutors office on patient status and need for guardianship. Carolyn states that there are no current guardians available to assign to patient. [facility] plans to continue to follow case and request to be updated with any changes. Carolyn aware of patient length of stay in the ED and concern for patient being able to manage on own. Will continue to follow. Ashlee VERA, ULYSSES
[2020-01-17] MEDS: lamoTRIgine 100 MG Tablet PO (11:27)
--- NOTE | 2020-01-17 13:07 | CM.ED ---
Social Work Was able to obtained discharge medication list from [facility]. Medication list provided to ED Nursing staff. Ashlee VERA, ULYSSES
[2020-01-17 15:53] LABS: AST(SGOT) 32 U/L (15-37); Alanine Aminotransfer ALT/SGPT 45 U/L (16-61); Albumin, Serum 3.9 g/dL (3.2-5.0); Alkaline Phosphatase 136 U/L (45-117); Bilirubin, Direct 0.28 mg/dL (0.00-0.30); Globulin 3.9 g/dL (2.2-4.2); Protein, Total 7.8 g/dL (6.4-8.2)
--- NOTE | 2020-01-17 19:55 | ED.RN ---
Daniella Murillo RN from Infection Control spoke with this RN. She states that newest guidelines after speaking with the Health Dept are if a pt is asymptomatic 10 days after positive they can be removed from isolation precautions. Pt tested positive on 12/31 and has been asymptomatic the entire time. ER doc notified. RN to obtain updated set of vitals and consult ID
[2020-01-17] MEDS: Pilocarpine HCl 5 MG Tablet PO (22:38)
[2020-01-17] MEDS: Divalproex Sodium 250 MG Tablet 500 MG PO (22:38)
[2020-01-17] MEDS: Oxybutynin 5 MG Tablet PO (22:38)
[2020-01-17] MEDS: traZODone 50 MG Tablet PO (22:38)
[2020-01-17] MEDS: Atorvastatin Calcium 20 MG Tablet PO (22:38)
[2020-01-18] VITALS (7 sets, daily range): BP systolic 113–132; BP diastolic 66–101; PULSE 9–105; RESP 16–20; TEMP 35.6; O2SAT 94
[2020-01-18] MEDS: LORazepam 1 MG Tablet PO (06:46)
[2020-01-18] MEDS: Pilocarpine HCl 5 MG Tablet PO ×3 (06:46→22:21)
[2020-01-18] MEDS: Oxybutynin 5 MG Tablet PO ×3 (06:46→22:20)
--- NOTE | 2020-01-18 07:06 | NURSING ---
DR APRIL LUCERO. DR GUERRA SLEEVE SEPARATOR
--- NOTE | 2020-01-18 07:58 | NURSING ---
PAGED INFECTION CONTROL
--- NOTE | 2020-01-18 08:04 | NURSING ---
DR BOWEN TALKING TO DR GUERRA
--- NOTE | 2020-01-18 10:14 | NURSING ---
FAXED LIVER PANEL AND DOCTORS DICTATION TO CRIS[facility]
--- NOTE | 2020-01-18 11:00 | ED.RN ---
THIS NURSE SPOKE WITH [facility] WORKER, SO FAR NO FACILITIES WILL ACCEPT THE PT UNTIL HE HAS A NEGATIVE COVID TEST EVEN THOUGH AN INFECTIOUS DISEASE DOCTOR HAS CLEARED THE PT
[2020-01-18] MEDS: Divalproex Sodium 250 MG Tablet PO (11:18)
[2020-01-18] MEDS: lamoTRIgine 100 MG Tablet PO (11:18)
[2020-01-18] MEDS: ARIPiprazole 10 MG Tablet 15 MG PO (11:19)
[2020-01-18] MEDS: Gabapentin 100 MG Capsule 200 MG PO ×3 (11:19→20:41)
[2020-01-18] MEDS: Pantoprazole Sodium 20 MG Tablet PO (11:19)
[2020-01-18] MEDS: Meloxicam 15 MG Tablet PO (11:19)
[2020-01-18] MEDS: Levothyroxine 25 MCG TABLET PO (11:19)
[2020-01-18] MEDS: Mirtazapine 15 MG Tablet PO (11:20)
[2020-01-18 12:37] LABS: Probe Check PASS
--- NOTE | 2020-01-18 13:39 | ED.RN ---
LINH FROM [facility] HERE IN PERSON TO SPEAK WITH AND EVALUATE THE PATIENT
--- NOTE | 2020-01-18 17:11 | ED.RN ---
THIS NURSE SPOKE WITH MEHREEN FROM [facility] ON THE PHONE, [facility]OTH [facility] LOOKING AT THE PT CHART. WILL CALL BACK WITH AN UPDATE. IF ON Monday WE HAVE NO PLACEMENT, [facility] IS WILLING TO ADMIT THE PATIENT WHEN THEY HAVE SOME BEDS OPEN
--- NOTE | 2020-01-18 17:22 | ED.RN ---
SPOKE WITH PT SISTER ON THE PHONE, PER SISTER PT LAST GUARDIAN WAS CHINTAN PEREZ AT [facility]. THIS INFORMATION WAS GIVEN TO MEHREEN AT [facility]
[2020-01-18] MEDS: Divalproex Sodium 250 MG Tablet 500 MG PO (22:20)
[2020-01-18] MEDS: traZODone 50 MG Tablet PO (22:20)
[2020-01-18] MEDS: Atorvastatin Calcium 20 MG Tablet PO (22:21)
[2020-01-19] VITALS (9 sets, daily range): BP systolic 128–138; BP diastolic 72–98; PULSE 94–101; RESP 15–20; TEMP 36.2; O2SAT 96–97
[2020-01-19] MEDS: Oxybutynin 5 MG Tablet PO ×2 (07:33→14:10)
[2020-01-19] MEDS: Pilocarpine HCl 5 MG Tablet PO ×2 (07:33→14:10)
[2020-01-19] MEDS: lamoTRIgine 100 MG Tablet PO (14:08)
[2020-01-19] MEDS: Levothyroxine 25 MCG TABLET PO (14:08)
[2020-01-19] MEDS: Divalproex Sodium 250 MG Tablet PO (14:11)
[2020-01-19] MEDS: Gabapentin 100 MG Capsule 200 MG PO ×2 (14:12→18:49)
[2020-01-19] MEDS: Meloxicam 15 MG Tablet PO (14:14)
[2020-01-19] MEDS: ARIPiprazole 10 MG Tablet 15 MG PO (14:14)
[2020-01-19] MEDS: Mirtazapine 15 MG Tablet PO (14:15)
[2020-01-19] MEDS: Pantoprazole Sodium 20 MG Tablet PO (14:16)
[2020-01-20] VITALS (11 sets, daily range): BP systolic 118–132; BP diastolic 83–108; PULSE 82–105; RESP 16–18; TEMP 36.3–37; O2SAT 95–96
[2020-01-20] MEDS: Oxybutynin 5 MG Tablet PO ×4 (00:11→22:13)
[2020-01-20] MEDS: Pilocarpine HCl 5 MG Tablet PO ×4 (00:12→22:13)
[2020-01-20] MEDS: Divalproex Sodium 250 MG Tablet 500 MG PO ×2 (00:13→22:13)
[2020-01-20] MEDS: traZODone 50 MG Tablet PO ×2 (00:13→22:13)
[2020-01-20] MEDS: Atorvastatin Calcium 20 MG Tablet PO ×2 (00:13→22:13)
[2020-01-20] MEDS: Gabapentin 100 MG Capsule 200 MG PO ×3 (08:24→17:53)
[2020-01-20] MEDS: Levothyroxine 25 MCG TABLET PO (08:26)
[2020-01-20] MEDS: Divalproex Sodium 250 MG Tablet PO (08:29)
--- NOTE | 2020-01-20 10:11 | CM.ED ---
Social Work Telephone call to Eve Win. Eve reports that patient is pending approval at [facility]. they are reviewing the clinicals. Eve to get back to this social insurance specialist. Ashlee VERA, ULYSSES
[2020-01-20] MEDS: lamoTRIgine 100 MG Tablet PO (10:36)
[2020-01-20] MEDS: Meloxicam 15 MG Tablet PO (10:36)
[2020-01-20] MEDS: Pantoprazole Sodium 20 MG Tablet PO (10:36)
--- NOTE | 2020-01-20 11:46 | ED.RN ---
TALKED WITH [facility]. REGARDING PT ADMITTANCE
--- NOTE | 2020-01-20 14:33 | CM.ED ---
Social Work Telephone call from Leticia Win. Ass[facility] is declining patient. Leticia states to have also spoken with and patient continues to be declined due to no open beds. This social media job titles inquiring about guardianship status for patient. Leticia state that the [facility] and APS are working on setting up guardianship for patient. Updated medical team. Ashlee Lewis MSW, ULYSSES
[2020-01-20] MEDS: ARIPiprazole 10 MG Tablet 15 MG PO (15:13)
[2020-01-20] MEDS: Mirtazapine 15 MG Tablet PO (15:15)
[2020-01-21] VITALS (13 sets, daily range): BP systolic 128–157; BP diastolic 69–75; PULSE 67–81; RESP 14–18; O2SAT 96–99
[2020-01-21] MEDS: Oxybutynin 5 MG Tablet PO ×3 (11:14→22:24)
[2020-01-21] MEDS: Divalproex Sodium 250 MG Tablet PO (11:14)
[2020-01-21] MEDS: lamoTRIgine 100 MG Tablet PO (11:14)
[2020-01-21] MEDS: Pilocarpine HCl 5 MG Tablet PO ×3 (11:14→22:24)
[2020-01-21] MEDS: Levothyroxine 25 MCG TABLET PO (11:14)
[2020-01-21] MEDS: Pantoprazole Sodium 20 MG Tablet PO (11:15)
[2020-01-21] MEDS: Meloxicam 15 MG Tablet PO (11:15)
[2020-01-21] MEDS: Mirtazapine 15 MG Tablet PO (11:15)
[2020-01-21] MEDS: ARIPiprazole 10 MG Tablet 15 MG PO (11:15)
[2020-01-21] MEDS: Gabapentin 100 MG Capsule 200 MG PO ×3 (11:15→22:23)
--- NOTE | 2020-01-21 12:55 | PCM.PN.ID ---
- Physical Exam Vitals/I&O's: Vital Signs Temp Pulse Resp BP Pulse Ox 98.6 F 67 16 138/72 H 99 01/20/20 22:47 01/21/20 08:27 01/21/20 09:24 01/21/20 08:27 01/21/20 08:27 Oxygen Delivery Method Room Air Weight: 53.8 kg Body Mass Index (BMI) 17.5 Current Medications Aripiprazole (Abilify) 15 mg PO DAILY [facility] Last Admin: 01/21/20 11:15 Dose: 15 mg Documented by: Atorvastatin Calcium (Lipitor) 20 mg PO QHS [facility] Last Admin: 01/20/20 22:13 Dose: 20 mg Documented by: Divalproex Sodium (Depakote) 250 mg PO BREAKFAST [facility] Last Admin: 01/21/20 11:14 Dose: 250 mg Documented by: Divalproex Sodium (Depakote) 500 mg PO QHS [facility] Last Admin: 01/20/20 22:13 Dose: 500 mg Documented by: Gabapentin (Neurontin) 200 mg PO TIDCM [facility] Last Admin: 01/21/20 11:15 Dose: 200 mg Documented by: Lamotrigine (Lamictal) 100 mg PO DAILY [facility] Last Admin: 01/21/20 11:14 Dose: 100 mg Documented by: Levothyroxine Sodium (Synthroid) 25 mcg PO DAILY [facility] Last Admin: 01/21/20 11:14 Dose: 25 mcg Documented by: Meloxicam (Mobic) 15 mg PO DAILY [facility] Last Admin: 01/21/20 11:15 Dose: 15 mg Documented by: Mirtazapine (Remeron) 15 mg PO DAILY [facility] Last Admin: 01/21/20 11:15 Dose: 15 mg Documented by: Nicotine (Nicoderm Cq (Pbkc)) 21 mg TRANSDERM. DAILY [facility] Last Admin: 01/21/20 11:15 Dose: Not Given Documented by: Oxybutynin Chloride (Ditropan) 5 mg PO TID [facility] Last Admin: 01/21/20 11:14 Dose: 5 mg Documented by: Pantoprazole Sodium (Protonix) 20 mg PO DAILY [facility] Last Admin: 01/21/20 11:15 Dose: 20 mg Documented by: Pilocarpine HCl (Salagen) 5 mg PO TID [facility] Last Admin: 01/21/20 11:14 Dose: 5 mg Documented by: Trazodone HCl (Desyrel) 50 mg PO QHS [facility] Last Admin: 01/20/20 22:13 Dose: 50 mg Documented by: Medical Necessity - Tobacco Use Smoking Status: Former smoker Route of nutrition/ use of supplements: [] Nutritional Intake: [] IV Site: [] Solomon Catheter: [] - Assessment/Plan Antibiotics: [] Assessment/Plan: [] COVID (+) at 12/28/19, (+) here 01/01/20. Discussed with ED. As he is over 2 weeks from his first positive test and asymptomatic, would not consider him contagious at this point. Ok for discharge to mental health facility. Please call with any questions.
--- NOTE | 2020-01-21 14:16 | CM.ED ---
Social Work Adult Protective Services, [place] came to evaluate patient. [place] states plan to set up guardianship for patient again and will present case to the prosecutors office. [place] to call with any updates and asked to be updated on any discharge plan set up for patient. Ashlee VERA, ULYSSES
--- NOTE | 2020-01-21 14:52 | CM.ED ---
Social Work Telephone call from Leticia Win. [facility] reviewed patient case and are unable to accept patient until patient has two negative COVID-19 test results 24hr apart. This social media specialist did update Leticia that infection disease, Dr. Sue cleared patient from in room precautions and that patient is not consider contagious currently. Updated medical team. Ashlee Lewis MSW, ULYSSES
--- NOTE | 2020-01-21 15:12 | CM.ED ---
Social Work Social Work inquired to Shaquille Arboleda, [facility], and [facility] if there would be an option for patient to be admitted as patient has been cleared by infectious disease as not contagious. [facility], [facility] and [facility] all stating to not be able to accept a patient until patient has two negative COVID-19 test results, 24 hours apart. Updated medical team. Ashlee Lewis MSW, ULYSSES
--- NOTE | 2020-01-21 16:00 | ED.RN ---
PT CALLED THIS RN TO ROOM, PT EXCITED, STATES LOOK AT THIS CONTRACT -PT HOLDING PAPER LEFT BY JASKARAN GURROLA. PT STATES GALILEO IS A 'KRAJIK, THEY ARE MUSIC PEOPLE AND HAVE FINALLY FOUND HIM. STATES MY PRAYERS HAVE FINALLY BEEN ANSWERED, I'LL GET TO HAVE A MUSIC DEAL. 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 WE HIT IT OFF TO A T.
--- NOTE | 2020-01-21 16:09 | CM.ED ---
Social Work Telephone call to Michael JESSICA. Updated Michael on recent nursing note that patient now believes that patient is going to have a music deal after speaking with Michael and that patient is associating Michael with Cali Jones (music umñoz). Michael thanking this social media marketing specialist for the information. Ashlee VERA, ULYSSES
--- NOTE | 2020-01-21 17:37 | CM.ED ---
Social Work Telephone call from Nuvia Miles, Clinical Director at [facility]. Nuvia reports to have spoken with Radah Felix, Clinical Director at [facility] and that patient is now on the list for [facility]. There are currently no beds open at [facility] and per Radha patient MIGHT be able to be moved on of this week. Apparently Dipti Banks (mental Health board) contacted Pj, TAPE EDGE MACHINE OPERATOR of [facility] and this is what assisted in facilitating putting patient on the list. Medical team updated. Patient continues to be stopping nursing staff and wanting to show you my songs that patient is putting together for contract with musical artist Cali Cramer, see prior nursing notes for full explanation. Ashlee VERA, ULYSSES
[2020-01-21] MEDS: Atorvastatin Calcium 20 MG Tablet PO (22:24)
[2020-01-21] MEDS: Divalproex Sodium 250 MG Tablet 500 MG PO (22:33)
[2020-01-21] MEDS: traZODone 50 MG Tablet PO (22:33)
[2020-01-22] VITALS (9 sets, daily range): BP systolic 117–156; BP diastolic 78–88; PULSE 86–88; RESP 16–20; TEMP 36.5; O2SAT 95–97
[2020-01-22] MEDS: DiphenhydrAMINE 25 MG Capsule 50 MG PO (02:52)
[2020-01-22] MEDS: Divalproex Sodium 250 MG Tablet PO (07:38)
[2020-01-22] MEDS: Pilocarpine HCl 5 MG Tablet PO ×3 (07:38→21:41)
[2020-01-22] MEDS: Oxybutynin 5 MG Tablet PO ×3 (07:40→21:40)
[2020-01-22] MEDS: Gabapentin 100 MG Capsule 200 MG PO ×3 (07:44→21:40)
--- NOTE | 2020-01-22 07:59 | ED.RN ---
PT CALLED OUT THANKING US FOR A GREAT BREAKFAST BUT HE DOESN'T LIKE OR EAT PORK. PT ALSO REQUESTED THAT WE LOOK INTO WHAT JOBS HE CAN GET HERE AT THE HOSPITAL. PT STATES HE CAN WALK PRETTY WELL WITH A CANE AND HASN'T FALLEN WHILE HE HAS BEEN HERE SO THAT IS GOOD. ALSO STATES HE CAN NOT SIT OR STAND FOR VERY LONG BUT WOULD LIKE SOMETHING HE CAN DO.
[2020-01-22] MEDS: Pantoprazole Sodium 20 MG Tablet PO (11:18)
[2020-01-22] MEDS: Mirtazapine 15 MG Tablet PO (11:18)
[2020-01-22] MEDS: Meloxicam 15 MG Tablet PO (11:18)
[2020-01-22] MEDS: ARIPiprazole 10 MG Tablet 15 MG PO (11:18)
[2020-01-22] MEDS: Levothyroxine 25 MCG TABLET PO (11:18)
[2020-01-22] MEDS: lamoTRIgine 100 MG Tablet PO (11:20)
--- NOTE | 2020-01-22 11:52 | ED.RN ---
when medicating pt, he continues to have flight of ideas. he states he has a new song that he wants to give to a certain muñoz in [place]. 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 then will immediately switch to quoting the bible and stating as soon as I start praying for a woman, God sends one right to me.
--- NOTE | 2020-01-22 12:45 | CM.ED ---
SOCIAL WORK Received call from Nuvia Miles with Crisis. Per Nuvia, spoke with Radha Felix (Clinical Director at [facility]) who reported is continuing to work on placement to [facility] tomorrow. Staff sacha. Ju Best, PATHOLOGY LABORATORY DIRECTOR, [place] [employer]
--- NOTE | 2020-01-22 14:34 | CM.ED ---
SOCIAL WORK Received call from APS workerMichael. Per Michael, spent the last 20 minutes on phone with patient. Michael reports patient is manic and rambling. Updated still awaiting placement at [facility]. Ju Best, PROCESS IMPROVEMENT ANALYST, LEVELER
--- NOTE | 2020-01-22 16:30 | CM.ED ---
SOCIAL WORK Patient requested to speak with [employer] Flatbed Driver. Met with patient in room. Patient with flight of ideas. Patient states I just want out of here. I'm up walking good, eating, I'm gaining weight. I want to go home to a good environment. Support and active listening provided. Updated patient on plan for [facility]. Patient states, I already worked things out. I'm leaving Monday afternoon. My insurance is going to stop paying and I don't have that kind of money.
--- NOTE | 2020-01-22 20:16 | CM.ED ---
SOCIAL WORK Received call from patient's daughter, Eve. Discussed possible transfer tomorrow to [facility]. Eve inquiring about guardianship. Informed Adult Protective Services is involved and working on guardianship. Ju Best, FINANCIAL BUSINESS ANALYST, FIELD CASHIER
[2020-01-22] MEDS: traZODone 50 MG Tablet PO (21:40)
[2020-01-22] MEDS: Atorvastatin Calcium 20 MG Tablet PO (21:40)
[2020-01-22] MEDS: MELATONIN 10 MG TABLET PO (21:40)
[2020-01-22] MEDS: Divalproex Sodium 250 MG Tablet 500 MG PO (21:41)
[2020-01-23 02:13] VITALS: RESP 18
[2020-01-23] MEDS: Ibuprofen 600 MG Tablet PO (04:21)
[2020-01-23 07:53] VITALS: BP 120/80; PULSE 84; RESP 18; O2SAT 96
--- NOTE | 2020-01-23 08:57 | ED.RN ---
THIS NURSE SPOKE WITH THE ASSEMBLY LINE UPHOLSTERER OF [facility] TO ANSWER QUESTIONS ABOUT PT COOPERATION. THIS NURSE INFORMED THE DIRECTOR THAT THE PT IS COMPLETELY COOPERATIVE AND NO ISSUES. PT IS ON MEDICATIONS AND IS CURRENTLY READING THE NEWSPAPER. [facility] TO CALL BACK WITH ADMISSION INFORMATION
[2020-01-23] MEDS: Divalproex Sodium 250 MG Tablet PO (09:09)
[2020-01-23] MEDS: Oxybutynin 5 MG Tablet PO (09:09)
[2020-01-23] MEDS: Gabapentin 100 MG Capsule 200 MG PO ×2 (09:12→12:22)
[2020-01-23] MEDS: Pilocarpine HCl 5 MG Tablet PO (09:13)
[2020-01-23 09:17] VITALS: RESP 18
--- NOTE | 2020-01-23 10:33 | CM.ED ---
SOCIAL WORK Received call from [place] with Crisis. Per Eve, Crisis received call from [facility] and they are working on accepting patient to their isolation unit today. [place] reports will call back with any additional information once received. Ju Best, GROUP CARE WORKER, ENVIRONMENTAL HEALTH AIDE
--- NOTE | 2020-01-23 10:40 | CM.ED ---
SOCIAL WORK Call from Eve with Crisis who reports [place] requesting updated [place] be faxed. Staff updated. Ju Best, POTATO CHIP FRYER, GIZZARD PULLER
[2020-01-23 11:32] VITALS: BP 128/74; PULSE 82; RESP 18; O2SAT 96
[2020-01-23] MEDS: lamoTRIgine 100 MG Tablet PO (11:35)
[2020-01-23] MEDS: Meloxicam 15 MG Tablet PO (11:35)
[2020-01-23] MEDS: Pantoprazole Sodium 20 MG Tablet PO (11:37)
[2020-01-23] MEDS: Levothyroxine 25 MCG TABLET PO (11:38)
--- NOTE | 2020-01-23 11:43 | ED.RN ---
PT REMAINS IN ROOM, TALKING TO MACK AND TALKING ABOUT GOD [facility] THE WORLD. PT EASY TO REDIRECT WITH DIRECTION
--- NOTE | 2020-01-23 12:03 | NURSING ---
2862 FAXED P[facility] SLIP TO [facility]
[2020-01-23] MEDS: ARIPiprazole 10 MG Tablet 15 MG PO (12:17)
[2020-01-23] MEDS: Mirtazapine 15 MG Tablet PO (12:18)
--- NOTE | 2020-01-23 13:50 | CM.ED ---
SOCIAL WORK Call to Crisis to check on status of placement at [facility]. Per Lucille, spoke with [facility] and they are expecting patient at 3p. Updated staff and called [facility] as staff has not received accepting information. Spoke with Nuvia at [facility]. Patient has been accepted by Dr. Daniels. Nuvia states patient will be going to the gym, our quarantine unit. Nurse to call report to ANSHU Leiva at [phone]. Commercial Loan Reviewer to set up transport. Ju Best, WILLOW ANALYST, LEASING REPRESENTATIVE
--- NOTE | 2020-01-23 14:07 | NURSING ---
1356 CALLED [facility]. ETA IS 20 MIN
--- NOTE | 2020-01-23 14:09 | CM.ED ---
SOCIAL WORK Call to Adult Protective Services workerMichael to update on patient's transfer to [facility]. No answer, left message. Ju Best, MATERIAL CHECKER, OFFLINE CUTTER
--- NOTE | 2020-01-23 14:49 | CM.ED ---
SOCIAL WORK Call to patient's family to update on patient's transfer to [facility]. Ju Best, DEDICATED OWNER OPERATOR, SYSTEMS INTEGRATION ADVISOR
== END 2020-01-23 15:03 ==
LOC: ED 15:48
PROVIDERS: Emergency Medicine; Student in an Organized Health Care Education/Training Program; Emergency Provider Emergency Medicine; PCP Internal Medicine
DX: F25.9 Schizoaffective disorder, unspecified (principal); F31.9 Bipolar disorder, unspecified; U07.1 COVID-19; Z91.14 Patient's other noncompliance with medication regimen; J44.9 Chronic obstructive pulmonary disease, unspecified; F03.90 Unspecified dementia, unspecified severity, without behavioral disturbance, psychotic disturbance, mood disturbance, and anxiety; E03.9 Hypothyroidism, unspecified; Z79.899 Other long term (current) drug therapy; Z79.1 Long term (current) use of non-steroidal anti-inflammatories (NSAID); Z87.891 Personal history of nicotine dependence; F10.21 Alcohol dependence, in remission; Z85.118 Personal history of other malignant neoplasm of bronchus and lung; Z85.818 Personal history of malignant neoplasm of other sites of lip, oral cavity, and pharynx
CPT/HCPCS: 36415; 70470; 71045; 80048; 80076; 80307; 80320; 81001; 84443; 85025; 87635; 93005; 94799; 96372; 99285; Q9967; A4216; G0480; U0003

== ENCOUNTER 2020-04-08 04:35 | Emergency (ER) | payer OTHER, SELFPAY ==
[2018-06-11 13:33] VITALS: BMI 26.4
[2020-04-08 04:38] VITALS: BP 175/92; PULSE 96; RESP 16; TEMP 36.4; O2SAT 98
--- NOTE | 2020-04-08 04:41 | EKG12_ITS ---
Test Reason : DYSRHYTHMIA Blood Pressure : / mmHG Vent. Rate : 094 BPM Atrial Rate : 094 BPM P-R Int : 158 ms QRS Dur : 082 ms QT Int : 354 ms P-R-T Axes : 084 080 072 degrees QTc Int : 442 ms Normal sinus rhythm Biatrial enlargement Abnormal ECG Confirmed by NAZANIN PERALTA, JACINTA ([id number]), editorial assistant EDER BRUNER ([id number]) on 04/09/2020 12:56:06 PM Referred By: JEAN Confirmed By:MINOO BACK MD
--- NOTE | 2020-04-08 04:41 | ED.VIS.GEN ---
History of Present Illness Chief Complaint: Mental Health Informant: Patient Onset: Days Context: Gradual Onset Timing: Continuous Current Severity: Moderate Maximum Severity: Severe Narrative: The patient is a 64-year-old male with medical history significant for schizoaffective disorder, bipolar disorder, COPD who presents to the emergency department by EMS. Apparently, the patient has been increasingly anxious. He states that he feels like he is manic. He does have some flight of ideas. He states has not been able to sleep for about 4 days. He states he has been increasingly paranoid and just feels like my mental health is crumbling. The patient was recently hospitalized at [facility]. He states that he got out about a week ago. He has been compliant with his medications, but just feels like he is at risk. He states that he is internally stimulated and just cannot seem to rest because he is just very worried. Prior similar symptoms: Yes Recent Illness/Hospitalization: Yes Past Medical History - Allergies and Home Meds Allergies/Adverse Reactions: Allergies No Known Allergies Allergy (Verified 04/08/20 04:37) Primary Care Physician: Jose Castro MD [Primary Care Provider] - Prior records reviewed: Yes Past Medical History: - - COPD, hypertension, smoking history, schizoaffective, bipolar disorder Surgical History: noncontributory Smoking Status: Former smoker Review of Systems General: Denies: Chills, Fever, Sweats Eyes: Denies: Visual changes - bilaterally, Diplopia ENT: Denies: Rhinorrhea, Sore throat Cardiovascular: Denies: Chest pain, Palpitations Respiratory: Denies: Dyspnea, Cough, Dyspnea on exertion Gastrointestinal: Denies: Abdominal pain, Nausea, Vomiting, Diarrhea, Melena, Hematochezia Genitourinary: Denies: Dysuria, Hematuria, Frequency Musculoskeletal: Denies: Back pain, Extremity Pain Skin: Denies: Rash, Wounds Neurological: Denies: Headache, Weakness, Numbness Physical Exam Inital Vital Signs reviewed: Yes General: Well nourished, Well developed, No Acute Distress Head: Normocephalic, Atraumatic Eyes: Perrl, EOMI ENT: Moist mucous membranes, No rhinorrhea Neck: Supple, Nontender Cardiovascular: Regular rate, Regular rhythm, No murmurs Respiratory: No distress, CTA bilaterally, Chest nontender Abdomen: Soft, Nontender, Nondistended, Normal bowel sounds Back: Nontender, Normal Inspection Extremities: Nontender, No edema Skin: Normal color, No rash Neurological: Alert, Oriented x3, Cranial nerves II-XII grossly intact, Normal Strength, Normal Sensation Diagnostic/Tx/Re-eval Abnormal Lab Results 04/08/20 04/08/20 04/08/20 04:55 04:55 04:55 WBC 6.9 RBC 4.43 L Hgb 14.3 Hct 42.6 MCV 96.2 H MCH 32.3 H MCHC 33.6 RDW Std Deviation 47.2 H RDW Coeff of Oneal 13.2 Plt Count 186 MPV 9.5 Immature Gran % (Auto) 0.300 Neut % (Auto) 77.9 H Lymph % (Auto) 13.2 L [place] % (Auto) 6.5 Eos % (Auto) 1.7 Baso % (Auto) 0.4 Absolute Neuts (auto) 5.4 Absolute Lymphs (auto) 0.91 Nucleated RBC % 0 Sodium 138 Potassium 3.3 L Chloride 102 Carbon Dioxide 28.0 Anion Gap 8 BUN 17 Creatinine 1.08 Estim Creat Clear Calc 62.07 Est GFR (MDRD) Af Amer 88 Est GFR (MDRD) Non-Af 73 BUN/Creatinine Ratio 15.7 Glucose 130 H Calcium 9.8 Total Bilirubin 0.50 Direct Bilirubin 0.16 AST 18 ALT 28 Alkaline Phosphatase 156 H Total Protein 8.6 H Albumin 4.2 Globulin 4.4 H TSH 6.68 H Ethyl Alcohol 5.0 - Rhythm Strip Rhythm Strip: Sinus Rhythm Rate: 80 Ectopy: None - EKG Initial EKG Interpretation: Sinus Rhythm, No Acute Injury Pattern Prior: Unchanged - Medical Decision Making Patient presents with acute brenda and increasing paranoia. He states it is not feel safe. Metabolic work-up was pursued and was unremarkable. Tox is currently pending. Plan will be for the patient to undergo psychiatric evaluation given his acute brenda. Disposition is currently pending. Impression 1. Acute brenda ED Disposition - Plan for ED Patient: Referrals: Jose Castro MD [Primary Care Provider] -
[2020-04-08] MEDS: LORazepam 1 MG Tablet 2 MG PO (04:46)
--- NOTE | 2020-04-08 04:58 | ED.RN ---
patient not able to recall all the medications that he takes
[2020-04-08 05:04] LABS: Absolute Lymphocyte Count 0.91 X10^3/uL (0.83-4.51); Absolute Neutrophil Count 5.4 X10^3/uL (2.0-7.7); Basophil# 0.03 X10^3/uL; Basophil% 0.4 % (0-1); Eosinophil# 0.12 X10^3/uL; Eosinophils% 1.7 % (0-5); Hematocrit 42.6 % (40-54); Hemoglobin 14.3 g/dL (13.0-16.5); Lymphocyte # 0.91 X10^3/ul (4.0); Lymphocyte % 13.2 % (19-41); Mean Corp Hgb Conc 33.6 g/dL (32-36); Mean Corpuscular Hgb 32.3 pg (27.0-32.0); Mean Corpuscular Volume 96.2 fL (80-94); Mean Platelet Vol. 9.5 fl (6.2-12.0); Monocyte# 0.45 X10^3/uL; Monocyte% 6.5 % (0-10); NRBC Flagged by Analyzer 0 % (0-5); Neutrophil # 5.37 X10^3/uL (2.7-7.7); Neutrophil % 77.9 % (47-70); Platelet Count 186 K/mm3 (150-450); RBC Distribution Width CV 13.2 % (11.6-14.6); RBC Distribution Width SD 47.2 fl (35.1-43.9); Red Blood Count 4.43 M/mm3 (4.6-6.2); White Blood Count 6.9 K/mm3 (4.4-11.0)
[2020-04-08 05:36] VITALS: RESP 16
[2020-04-08 05:40] LABS: AST(SGOT) 18 U/L (15-37); Alanine Aminotransfer ALT/SGPT 28 U/L (16-61); Albumin, Serum 4.2 g/dL (3.2-5.0); Alkaline Phosphatase 156 U/L (45-117); Anion Gap 8 (5-15); BUN 17 mg/dL (7-18); BUN/Creat Ratio 15.7 RATIO (10-20); Bilirubin, Direct 0.16 mg/dL (0.00-0.30); Calcium,Total 9.8 mg/dL (8.5-10.1); Chloride 102 mmol/L (98-107); Creatinine, Serum 1.08 mg/dL (0.70-1.30); EST Glomerular Filtration Rate 73 mL/min (>60); Est Glom Filt Rate - Afr Amer 88 mL/min (>60); Estimated Creatinine Clearance 62.07 ml/min; Globulin 4.4 g/dL (2.2-4.2); Glucose 130 mg/dL (74-106); Potassium 3.3 mmol/L (3.5-5.1); Protein, Total 8.6 g/dL (6.4-8.2); Sodium Level 138 mmol/L (136-145); Thyroid Stim Hormone (TSH) 6.68 uIU/mL (0.358-3.74)
[2020-04-08 06:00] VITALS: RESP 14
--- NOTE | 2020-04-08 11:10 | CM.ED ---
SOCIAL WORK Informant: Nursing Reason for Consult: Mental Health Evaluation Chief Compliant: Patient reports increased anxiety and I can't function. Marital/Social History: Living Situation: Apartment, alone Support/Resources: Family, [facility] Education/Employment History: Bachelor's Degree. 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 Patient reports is compliant with medications and was just discharged from [facility] one week ago after being there for several months. Patient denies need for hospitalization. Substance Abuse History: Patient reports history of alcohol abuse and reports last drink was 4-5 months ago. Risk to Self/Others: Suicidal- Patient denies any suicidal ideation, plan or intent. Patient counseled on lethal means. Homicidal- Patient denies any homicidal ideation. Mental Status Exam: Orientation: A&Ox3 Memory: Fair Appearance/General Behavior: clean/appropriate, calm Mood/Affect: depressed, anxious Communication Pattern: responds to questions Thought Process: appropriate, reports some paranoia Judgment: fair Assessment: Met with patient in room. Introduced role and reason for referral. Patient asleep upon entering room. Patient states doing better since medication was given. Patient reports, I just can't function. Patient reports follows with [facility]. Patient denies any suicidal or homicidal ideation. Patient states was discharged from [facility] one week ago. Patient states has been taking medications. Patient admits sleep patterns are off and has been eating well. Patient denies need to be hospitalized. Patient gave permission for this worker to call and follow up with sisterEmma and [facility]. Education provided on [facility] Behavioral Health. Patient to review. Collaboration with Dr. Jarvis. Anticipate plan for home with resources. Call to [facility], spoke with Lucille. Discussed patient's visit. Per Lucille, patient's medical case worker is Marjorie Palacio, counselor is Mara (next appointment is 04/23 at 3p) and follows with Dr. Ravi (next appointment 04/14/20 at 3p). Lucille reports while patient was at [facility] [address] determined patient did not need a guardian. Patient is his own person. Lucille reports Crisis able to follow up with patient this evening and will update patient's medical case worker, Marjorie on visit. Call to patient's sister, Emma. Emma reports was unaware patient was in the ER and states spoke with patient last night. Sister does not feel patient requires hospitalization, but feels patient would benefit from senior living or assisted living. Discussed [facility] Behavioral Health and informed patient was given brochure to review. Informed sister this worker also call [facility] and message has been left with patient's medical case worker, Marjorie. Sister in agreement with plan. Updated Dr. Jarvis on the above. Patient to be discharged home. Ju Best, TECHNOLOGY DEVELOPMENT INTERN, FIELD MARKETING ASSOCIATE
[2020-04-08 11:32] LABS: Amphetamine Urine VISTA NEGATIVE (<1000 ng/mL); Barbiturate Urine VISTA NEGATIVE (< 200 ng/mL); Benzodiazepine Urine VISTA NEGATIVE (< 200 ng/mL); Cocaine Urine VISTA NEGATIVE (< 300 ng/mL); Ecstacy Urine VISTA NEGATIVE (< 500 ng/mL); Methadone Urine VISTA NEGATIVE (< 300 ng/mL); PCP Urine VISTA NEGATIVE (< 25 ng/mL); THC Urine VISTA NEGATIVE (< 50 ng/mL); Vista UDS pH Range 6
--- NOTE | 2020-04-08 12:00 | CM.ED ---
Addendum entered by Dalia Best 04/08/20 18:55: 13:39- Call to Lucille with [facility] to update patient to be discharged home. Updated patient in agreement with correction or assisted living. Luclile transferred call to Director of Case Management, Iker Cardenas. Message left updating on this worker's conversation with patient and need for follow up, call back information provided. Original Note: SOCIAL WORK Follow up with patient for discharge. Patient given written list of upcoming appointments with [facility]. Patient in agreement would benefit from correction or assisted living. Informed message has been left with case making machine operatorMarjorie. Patient requesting prescription for something for anxiety until appointment with Dr. Ravi. Dr. Jarvis and staff updated. Patient to call for transportation. Plan: Home with resources provided Ju Best MSW, CARDIAC REHABILITATION PROGRAM DIRECTOR
--- NOTE | 2020-04-08 12:01 | ED.DEP ---
ED Disposition - Plan for ED Patient: Disposition: Home or Assisted Living Diagnosis: Anxiety, Bipolar 1 disorder Instructions: ED Manic Depression Prescriptions: Lorazepam 1 mg PO Q8 PRN #6 tablet PRN Reason: Anxiety Transmission Status: Sent to [facility]30 Referrals: Jose Castro MD [Primary Care Provider] - [facility] [GROUP OF PHYSICIANS] - 04/14/20 (As scheduled)
[2020-04-08 12:32] VITALS: BP 120/68; PULSE 82; RESP 18; O2SAT 98
== END 2020-04-08 12:33 | disposition home or self-care (01) ==
PROVIDERS: Emergency Provider Emergency Medicine; PCP Internal Medicine
DX: F31.9 Bipolar disorder, unspecified (principal); F25.9 Schizoaffective disorder, unspecified; J44.9 Chronic obstructive pulmonary disease, unspecified; I10 Essential (primary) hypertension; Z79.899 Other long term (current) drug therapy; Z87.891 Personal history of nicotine dependence
CPT/HCPCS: 36415; 80048; 80076; 80307; 80320; 84443; 85025; 93005; 99284; G0480

== ENCOUNTER 2020-05-03 08:51 | Emergency (ER) | payer OTHER, SELFPAY ==
[2018-06-11 13:33] VITALS: BMI 26.4
[2020-04-14 12:53] VITALS: BMI 18.5
[2020-05-03 08:52] VITALS: BP 163/117; PULSE 79; RESP 20; TEMP 36.6; O2SAT 96; BMI 19.5
--- NOTE | 2020-05-03 08:57 | ED.VIS.GEN ---
History of Present Illness Chief Complaint: Anxiety Informant: Patient Narrative: 64-year-old male with history of bipolar disorder with madhavi, schizoaffective disorder presenting with anxiety. He states he was here on April 08 and did talk to crisis however they felt he was at his baseline. He was given Ativan for home however he states he nothing that he is doing is helping his anxiety. He denied suicidal or homicidal ideation to me however he told the nurse that he was suicidal when he arrived. He did not have a plan. The nurse then asked him if he had a plan would you do it and he said yes. Otherwise physically he states he has been healthy. He is eating and drinking normally. Is making normal urine and stool. He has not had a fever, cough, shortness of breath, nausea, vomiting. He states he normally sleeps 6 to 8 hours a night and he is only been able to sleep 2 hours last night. - Past Medical History (1) Hypothyroidism Status: Chronic Past Medical History - Allergies and Home Meds Allergies/Adverse Reactions: Allergies No Known Allergies Allergy (Verified 05/03/20 08:58) Primary Care Physician: Jose Castro MD [Primary Care Provider] - Past Medical History: - - Schizoaffective disorder, bipolar disorder Surgical History: noncontributory Lives: Alone Smoking Status: Current some day smoker Alcohol: None Drugs: None Review of Systems General: Denies: Chills, Fever, Sweats Eyes: Denies: Visual changes - bilaterally, Diplopia ENT: Denies: Rhinorrhea, Sore throat Cardiovascular: Reports: Heart racing. Denies: Chest pain, Palpitations Respiratory: Denies: Dyspnea, Cough, Dyspnea on exertion Gastrointestinal: Denies: Abdominal pain, Nausea, Vomiting, Diarrhea, Melena, Hematochezia Musculoskeletal: Denies: Back pain, Extremity Pain Skin: Denies: Rash, Wounds Neurological: Denies: Headache, Weakness, Numbness Psych: Reports: Depression, Anxiety, Suicidal thoughts Endocrine: Denies: Polyuria, Polydipsia Physical Exam Vital Signs/Narrative: Vital Signs Temp Pulse Resp BP Pulse Ox 05/03/20 08:52 97.8 F 79 20 H 163/117 H 96 Inital Vital Signs reviewed: Yes General: Well nourished, No Acute Distress Head: Normocephalic, Atraumatic Eyes: Perrl, EOMI ENT: Moist mucous membranes, No rhinorrhea. Negative for: Nasal congestion Neck: Negative for: Supple, Nontender Cardiovascular: Regular rate, Regular rhythm, No murmurs Respiratory: No distress, CTA bilaterally, Chest nontender Abdomen: Soft, Nontender, Nondistended Extremities: Nontender, No edema Skin: Normal color, No rash. Negative for: Cyanosis, Diaphoresis Neurological: Alert, Oriented x3, Cranial nerves II-XII grossly intact Diagnostic/Tx/Re-eval - Rhythm Strip Rhythm Strip: Sinus Rhythm Rate: 74 - EKG Initial EKG Interpretation: Sinus Rhythm, No Acute Injury Pattern Prior: Unchanged - Medical Decision Making After initially speaking with crisis management he felt the need to be inpatient as he did not feel he can care for himself at home and he is internally stimulated. She did agree and is attempting to find placement for him. She also did clarify that he does not have suicidal or homicidal ideation he just feels like he is desperate. Patient is medically cleared at this point. Impression: 1. Madhavi 2. History of bipolar disorder 3. History of schizoaffective disorder ED Disposition - Plan for ED Patient: Referrals: Jose Castro MD [Primary Care Provider] -
[2020-05-03 09:00] VITALS: BP 198/93
--- NOTE | 2020-05-03 09:11 | RAD_ITS ---
STUDY: X-RAY CHEST REASON FOR EXAM: Male, 64 years old. ANXIETY. TECHNIQUE: Single AP portable view of the chest. COMPARISON: 01/10/2020 FINDINGS: There is hyperinflation of the lungs consistent with chronic obstructive lung disease (COPD). There is persistent right perihilar density unchanged since the prior examination which was present on previous CT scan of May 2019. No new infiltrate is seen. There is no demonstrated pleural abnormality. Normal size heart. Normal mediastinum and almas. Normal visualized pulmonary arteries. Normal visualized aortic arch and descending thoracic aorta. Normal visualized thoracic spine. Normal visualized ribs, clavicles, and shoulders. There is no demonstrated abnormality of the visualized soft tissue structures of the upper abdomen. RAD/Chest 1 View (Portable) IMPRESSION: COPD changes. Persistent right perihilar opacity unchanged since prior examination. No new infiltrate is seen. Electronically Signed: Markus Rodríguez MD at 10:13 EST Tel , Service support ,
--- NOTE | 2020-05-03 09:11 | EKG12_ITS ---
Test Reason : Blood Pressure : / mmHG Vent. Rate : 074 BPM Atrial Rate : 074 BPM P-R Int : 150 ms QRS Dur : 080 ms QT Int : 374 ms P-R-T Axes : 068 079 066 degrees QTc Int : 415 ms Normal sinus rhythm Normal ECG Confirmed by JULIAN PERALTA, AYSE ([id number]), editor greeting card LAURA GOMES ([id number]) on 05/05/2020 9:18:31 AM Referred By: DONOVAN Confirmed By:AYSE JORDAN MD
[2020-05-03 09:27] LABS: Bacteria 0 SEEN /hpf (None Seen); Mucous, Urine 0 SEEN /hpf (<or=2+); Red Blood Cells-Urine 0 SEEN /hpf (0-5); Squamous Epithelial Cells - UA 0 SEEN /hpf (0-5); White Blood Cells 0 SEEN /hpf (0-5)
[2020-05-03 09:40] LABS: Color, Urine Yellow (Yellow); Glucose, Dipstick Normal (Normal); Ketone-Dipstick Negative (Negative); Leukocyte Esterase-Dipstick Negative /ul (Negative); Nitrite-Dipstick Negative (Negative); Occult Blood-Urine Negative /ul (Negative); Protein-Dipstick Negative (Negative); Urine Bilirubin Dipstick Negative (Negative); Urine Clarity Clear (Clear); Urine Urobilinogen Normal (Normal)
[2020-05-03 09:42] LABS: Absolute Lymphocyte Count 0.86 X10^3/uL (0.83-4.51); Absolute Neutrophil Count 4.7 X10^3/uL (2.0-7.7); Basophil# 0.03 X10^3/uL; Basophil% 0.5 % (0-1); Eosinophil# 0.06 X10^3/uL; Hemoglobin 16.4 g/dL (13.0-16.5); Lymphocyte # 0.86 X10^3/ul (4.0); Lymphocyte % 14.3 % (19-41); Mean Corp Hgb Conc 34.2 g/dL (32-36); Mean Corpuscular Hgb 32.4 pg (27.0-32.0); Mean Corpuscular Volume 94.9 fL (80-94); Mean Platelet Vol. 9.4 fl (6.2-12.0); Monocyte# 0.29 X10^3/uL; Monocyte% 4.8 % (0-10); NRBC Flagged by Analyzer 0 % (0-5); Neutrophil # 4.74 X10^3/uL (2.7-7.7); Neutrophil % 79.1 % (47-70); Platelet Count 174 K/mm3 (150-450); RBC Distribution Width CV 12.6 % (11.6-14.6); RBC Distribution Width SD 43.8 fl (35.1-43.9); Red Blood Count 5.06 M/mm3 (4.6-6.2)
[2020-05-03 09:43] LABS: Amphetamine Urine VISTA NEGATIVE (<1000 ng/mL); Barbiturate Urine VISTA NEGATIVE (< 200 ng/mL); Benzodiazepine Urine VISTA NEGATIVE (< 200 ng/mL); Cocaine Urine VISTA NEGATIVE (< 300 ng/mL); Ecstacy Urine VISTA NEGATIVE (< 500 ng/mL); Methadone Urine VISTA NEGATIVE (< 300 ng/mL); PCP Urine VISTA NEGATIVE (< 25 ng/mL); THC Urine VISTA NEGATIVE (< 50 ng/mL); Vista UDS pH Range 6
[2020-05-03 10:01] LABS: AST(SGOT) 10 U/L (15-37); Alanine Aminotransfer ALT/SGPT 26 U/L (16-61); Albumin, Serum 4.3 g/dL (3.2-5.0); Alkaline Phosphatase 143 U/L (45-117); Anion Gap 5 (5-15); BUN 14 mg/dL (7-18); BUN/Creat Ratio 13.7 RATIO (10-20); Calcium,Total 10.2 mg/dL (8.5-10.1); Chloride 106 mmol/L (98-107); Creatinine, Serum 1.02 mg/dL (0.70-1.30); EST Glomerular Filtration Rate 78 mL/min (>60); Est Glom Filt Rate - Afr Amer 94 mL/min (>60); Estimated Creatinine Clearance 64.16 ml/min; Globulin 4.2 g/dL (2.2-4.2); Glucose 105 mg/dL (74-106); Potassium 3.8 mmol/L (3.5-5.1); Protein, Total 8.5 g/dL (6.4-8.2); Sodium Level 140 mmol/L (136-145)
[2020-05-03 10:05] VITALS: PULSE 86; RESP 19; O2SAT 96
[2020-05-03 10:36] LABS: Alcohol, Blood (Medical)-Serum < 3.0 mg/dL
--- NOTE | 2020-05-03 11:04 | NURSING ---
FAXED CHART TO ED, [facility] [phone]
[2020-05-03] MEDS: LORazepam 1 MG Tablet PO (11:21)
--- NOTE | 2020-05-03 11:37 | NURSING ---
ED, CRISIS, TALKING TO PATIENT
--- NOTE | 2020-05-03 11:41 | ED.RN ---
pt currently talking with crises via phone
[2020-05-03 13:32] VITALS: RESP 18
[2020-05-03 14:15] VITALS: BP 149/91; PULSE 81; RESP 16; O2SAT 100
--- NOTE | 2020-05-03 14:40 | NURSING ---
FAXED PINK SLIP TO [facility]
--- NOTE | 2020-05-03 14:54 | NURSING ---
CALLED [facility], ETA IS 75 MIN
[2020-05-03 16:41] VITALS: BP 148/88; PULSE 80; RESP 18; O2SAT 97
== END 2020-05-03 16:42 ==
LOC: ED 09:42
PROVIDERS: Emergency Provider Student in an Organized Health Care Education/Training Program; PCP Internal Medicine
DX: F31.9 Bipolar disorder, unspecified (principal); F25.9 Schizoaffective disorder, unspecified; E03.9 Hypothyroidism, unspecified
CPT/HCPCS: 36415; 71045; 80053; 80307; 80320; 81001; 85025; 87426; 93005; 99285; G0480

== ENCOUNTER 2020-05-21 11:03 | Emergency (ER) | payer OTHER, SELFPAY ==
[2018-06-11 13:33] VITALS: BMI 26.4
[2020-05-21 11:05] VITALS: BP 138/80; PULSE 91; RESP 16; TEMP 35.7; O2SAT 98
[2020-05-21] MEDS: LORazepam 1 MG Tablet PO (11:48)
--- NOTE | 2020-05-21 12:30 | CM.ED ---
SOCIAL WORK Informant: Dr. Wells Reason for Consult: Mental Health Chief Compliant: Patient presents with anxiety and panic attacks Met with patient and patient's daughter, Eve in room. Introduced role and reason for referral. Patient known to this worker from previous visits. Patient reports to have just gotten out of [facility] a few weeks ago. Patient reports generalized anxiety and states I just worry about everything. Patient discussed financial stressors from previous hospitalization. Daughter concerned about medications. [facility] with [facility] and reports appointment is 3 weeks away. Education provided on [facility]. Patient open to referral, but reports is worried about insurance coverage. Support and education provided. Patient's daughter states patient will have Medicare in September. Patient open to this worker calling [facility] to see about follow up from ED. Patient open to intake appointment with [facility]. Call to [facility], spoke with Sena. Sena reports will send message to [facility] about patient's ER visit. At this time, patient's appointment with Dr. Ravi is 06/25/2019. Call to [facility]. Intake appointment scheduled for 05/26/2020 at 2:30p. Patient and daughter updated on time and location of appointment. Dr. Wells updated on the above. Dr. Wells to prescribe PRN anti-anxiety medication for patient to take in addition to other medications. Patient and daughter in agreement with plan. Plan: Home with follow up [facility] [employer]ACITOR INSPECTOR, HEALTH CLAIMS EXAMINER
--- NOTE | 2020-05-21 12:32 | ED.DCSUM_ITS ---
History of Present Illness Chief Complaint: Mental Health Narrative: Patient presenting for evaluation secondary to anxiety. Patient has an underlying history of bipolar. He has a complicated medical history where he has had multiple inpatient stays secondary to his psychiatric history, but currently is living in the community. Patient states that he has been dealing with increasing problems with anxiety since March that is been causing him sleep difficulty. He denies being homicidal or hallucinating. He denies being suicidal. Patient is on daily medication for this, but no as needed medications. He has been working with the counseling center, but states that he does not have an appointment for over a month. Patient and his daughter presenting requesting increased resources for his anxiety. Patient denies any other somatic complaints currently. View of systems otherwise negative. Past Medical History - Allergies and Home Meds Allergies/Adverse Reactions: Allergies No Known Allergies Allergy (Verified 05/03/20 08:58) Primary Care Physician: Jose Castro MD [Primary Care Provider] - Prior records reviewed: Yes Past Medical History: - - Lung cancer, COPD, bipolar Surgical History: noncontributory Smoking Status: Current every day smoker Alcohol: Sober Drugs: None Review of Systems All systems negative except as indicated General: Denies: Chills, Fever, Sweats Eyes: Denies: Visual changes - bilaterally, Diplopia ENT: Denies: Rhinorrhea, Sore throat Cardiovascular: Denies: Chest pain, Palpitations Respiratory: Denies: Dyspnea, Cough, Dyspnea on exertion Gastrointestinal: Denies: Abdominal pain, Nausea, Vomiting, Diarrhea, Melena, Hematochezia Genitourinary: Denies: Dysuria, Hematuria, Frequency Musculoskeletal: Denies: Back pain, Extremity Pain Skin: Denies: Rash, Wounds Neurological: Denies: Headache, Weakness, Numbness Psych: Reports: Anxiety Physical Exam Vital Signs/Narrative: Vital Signs Temp Pulse Resp BP Pulse Ox 05/21/20 11:05 96.3 F L 91 16 138/80 H 98 Inital Vital Signs reviewed: Yes General: Well developed, - - Very thin male no acute distress Head: Normocephalic, Atraumatic Eyes: Perrl, EOMI ENT: Moist mucous membranes, No rhinorrhea Neck: Supple, Nontender Cardiovascular: Regular rate, Regular rhythm, No murmurs Respiratory: No distress, CTA bilaterally, Chest nontender Abdomen: Soft, Nontender, Nondistended, Normal bowel sounds Back: Nontender, Normal Inspection Extremities: Nontender, No Edema Skin: Normal color, No rash Neurological: Alert, Oriented x3, Cranial nerves II-XII grossly intact, Normal S trength, Normal Sensation Psych: - - Patient has normal speech pattern. He is not suicidal homicidal or hallucinating. He does have some psychomotor agitation and is playing with silly putty the entire time I am doing the history and physical. Diagnostic/Tx/Re-eval Patient presented secondary to anxiety. He was given a dose of Ativan in the e mergency department. Social work evaluated the patient, they are in agreement with myself that the patient does not require placement, but they were able to evaluate the patient and arrange for him to have a psychiatric intake performed on Monday of next week, and for a message to be put out to his psychiatrist to be moved up for a earlier appointment. Patient will be sent home with as needed Ativan to be taken as needed. He was recommended to continue his current medications. ED Disposition - Plan for ED Patient: Disposition: Home or Assisted Living Diagnosis: Anxiety Instructions: ED Anxiety Reaction Prescriptions: Lorazepam [Ativan] 1 mg PO TID PRN 3 Days #9 tab PRN Reason: Anxiety Prescription Printed Additional Instructions: Follow-up for your psychiatric intake appointment on Monday at 2:30 PM as informed by social work.
== END 2020-05-21 13:30 | disposition home or self-care (01) ==
PROVIDERS: Emergency Provider Emergency Medicine; PCP Internal Medicine
DX: F41.9 Anxiety disorder, unspecified (principal); F31.9 Bipolar disorder, unspecified; J44.9 Chronic obstructive pulmonary disease, unspecified; F17.200 Nicotine dependence, unspecified, uncomplicated; Z79.899 Other long term (current) drug therapy; Z85.118 Personal history of other malignant neoplasm of bronchus and lung
CPT/HCPCS: 99283

== ENCOUNTER → 2020-06-10 14:48 | Outpatient (CLI) | payer OTHER, SELFPAY ==
[2018-06-11 13:33] VITALS: BMI 26.4
[2020-06-10 16:59] LABS: Erythrocyte Sedimentation Rate 7 mm/hr (0-20)
[2020-06-10 17:21] LABS: CRP 9.98 mg/L (0.0-3.0)
== END ==
PROVIDERS: PCP Internal Medicine; Referring Provider Internal Medicine; Visit Provider Internal Medicine
DX: R63.4 Abnormal weight loss (principal); E03.9 Hypothyroidism, unspecified
CPT/HCPCS: 36415; 84443; 85652; 86140

== ENCOUNTER → 2020-08-05 15:04 | Outpatient (CLI) | payer OTHER, SELFPAY ==
[2018-06-11 13:33] VITALS: BMI 26.4
[2020-08-05 14:38] VITALS: BMI 18.1
[2020-08-05 17:30] LABS: Thyroid Stim Hormone (TSH) 3.91 uIU/mL (0.358-3.74)
== END ==
PROVIDERS: PCP Internal Medicine; Referring Provider Internal Medicine; Visit Provider Internal Medicine
DX: E03.9 Hypothyroidism, unspecified (principal)
CPT/HCPCS: 36415; 84443

== ENCOUNTER 2020-09-09 15:10 | Outpatient (RCR) | payer MEDICARE, SELFPAY ==
[2018-06-11 13:33] VITALS: BMI 26.4
[2020-08-05 14:38] VITALS: BMI 18.1
== END 2020-11-10 23:59 ==
LOC: IMMUN 15:10
PROVIDERS: PCP Internal Medicine; Referring Provider Family Medicine; Visit Provider Family Medicine
DX: Z23 Encounter for immunization (principal)
CPT/HCPCS: 0001A; 0002A; 91300

== ENCOUNTER → 2021-01-21 11:26 | Outpatient (CLI) | payer MEDICARE, SELFPAY ==
[2018-06-11 13:33] VITALS: BMI 26.4
[2021-01-21 15:57] LABS: Thyroid Stim Hormone (TSH) 3.46 uIU/mL (0.358-3.74)
== END ==
PROVIDERS: PCP Internal Medicine; Referring Provider Physician Assistant; Visit Provider Physician Assistant
DX: E03.9 Hypothyroidism, unspecified (principal)
CPT/HCPCS: 36415; 84443

== ENCOUNTER 2021-04-08 14:17 | Emergency (ER) | payer MEDICARE, BC, SELFPAY ==
[2018-06-11 13:33] VITALS: BMI 26.4
[2021-04-08] VITALS (9 sets, daily range): BP systolic 133–200; BP diastolic 92–108; PULSE 74–98; RESP 14–25; TEMP 36.6; O2SAT 98–100; BMI 18.6
--- NOTE | 2021-04-08 14:51 | ED.RN ---
Pt. alert to self and remembered that sister brought pt. in. Unable to answer any other questions.
--- NOTE | 2021-04-08 15:06 | EKG12_ITS ---
Test Reason : CONFUSED Blood Pressure : / mmHG Vent. Rate : 070 BPM Atrial Rate : 070 BPM P-R Int : 146 ms QRS Dur : 074 ms QT Int : 404 ms P-R-T Axes : 084 083 078 degrees QTc Int : 436 ms Normal sinus rhythm Poor R wave progression Confirmed by JUAN MANUEL PERALTA, CELINE ([id number]), avid editor LAURA GOMES ([id number]) on 04/12/2021 10:54:16 AM Referred By: JAIME Confirmed By:CELINE ZAMBRANO MD
[2021-04-08] MEDS: cloNIDine HCl 0.1 MG Tablet 0.2 MG PO (15:22)
[2021-04-08 15:28] LABS: Absolute Lymphocyte Count 1.01 X10^3/uL (0.83-4.51); Absolute Neutrophil Count 7.2 X10^3/uL (2.0-7.7); Basophil# 0.05 X10^3/uL; Basophil% 0.6 % (0-1); Eosinophil# 0.01 X10^3/uL; Eosinophils% 0.1 % (0-5); Hematocrit 42.1 % (40-54); Hemoglobin 15.2 g/dL (13.0-16.5); Lymphocyte # 1.01 X10^3/ul (0.83-4.51); Lymphocyte % 11.5 % (19-41); Mean Corp Hgb Conc 36.1 g/dL (32-36); Mean Corpuscular Hgb 34.9 pg (27.0-32.0); Mean Corpuscular Volume 96.6 fL (80-94); Mean Platelet Vol. 10.2 fl (6.2-12.0); Monocyte# 0.52 X10^3/uL; Monocyte% 5.9 % (0-10); NRBC Flagged by Analyzer 0 % (0-5); Neutrophil # 7.17 X10^3/uL (2.7-7.7); Neutrophil % 81.7 % (47-70); Platelet Count 151 K/mm3 (150-450); RBC Distribution Width CV 12.9 % (11.6-14.6); RBC Distribution Width SD 46.4 fl (35.1-43.9); Red Blood Count 4.36 M/mm3 (4.6-6.2); White Blood Count 8.8 K/mm3 (4.4-11.0)
--- NOTE | 2021-04-08 15:33 | EX.ED.DYSGE1 ---
HPI History of Present Illness Chief Complaint: Confusion Narrative Narrative: Patient is a 65-year-old male with past medical history of schizophrenia. He was in the emergency department for approximately 1 month last year during Covid as he was Covid positive and off his medication and not acting appropriately. He is staying with his sister and reportedly his sister dropped him off at the ER today because he has been acting abnormally at home and is concerned that he has not been taking his medication. 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 Throat cancer Tobacco abuse Home Medications ibuprofen 400 mg PO Q6H PRN PRN 01/17/20 [History Last Taken Unknown] mirtazapine 15 mg tablet 30 mg PO QHS tab 04/15/20 [History Last Taken Unknown] oxcarbazepine 150 mg tablet 150 mg PO BID tab 06/10/20 [History Last Taken Unknown] risperidone 1 mg tablet 1 mg PO BID 06/10/20 [History Last Taken Unknown] benztropine 0.5 mg tablet 0.5 mg PO BID 08/05/20 [History Last Taken Unknown] lamotrigine 100 mg tablet 100 mg PO DAILY #90 tab 11/20/20 [Rx Last Taken Unknown] omeprazole 20 mg capsule,delayed release 20 mg PO DAILY #90 cap 12/17/20 [Rx Last Taken Unknown] oxybutynin chloride 15 mg tablet,extended release 24 hr 15 mg PO DAILY #30 tab 01/14/21 [Rx Last Taken Unknown] buspirone 10 mg tablet 10 mg PO TID 30 Days #90 tab 01/21/21 [Rx Last Taken Unknown] fluoxetine 20 mg capsule 20 mg PO DAILY #30 cap 01/21/21 [Rx Last Taken Unknown] thiamine HCl (vitamin B1) 100 mg tablet 100 mg PO DAILY #30 tab 01/21/21 [Rx Last Taken Unknown] levothyroxine 50 mcg tablet 50 mcg PO DAILY #30 tab 03/12/21 [Rx Last Taken Unknown] gabapentin 100 mg capsule 200 mg PO TID #180 cap 03/17/21 [Rx Last Taken Unknown] Allergy/AdvReac Type Severity Reaction Status Date / Time No Known Allergies Allergy Verified 04/08/21 14:23 Family History Father Lung cancer Mother Heart disease Cancer POSSIBLE COLON Sister Lung cancer Surgical History History of laryngoscopy Hx of tonsillectomy Social History Smoking Status: Current every day smoker tobacco type: cigarettes alcohol intake: current alcohol intake frequency: a few times a week Alcohol type: beer substance use type: does not use ROS ROS ED Review of Systems ROS Unobtainable: due to mental condition and due to mental status EXAM Physical Exam Const Vital Signs: 04/08/21 14:18 04/08/21 15:20 04/08/21 15:48 Temperature 98 F Temperature Source Temporal Pulse Rate 98 77 81 Respiratory Rate 20 H 18 14 Blood Pressure 133/105 H 162/106 H 200/104 H Blood Pressure Mean 114 124 136 Pulse Ox 100 100 100 Oxygen Delivery Method Room Air Room Air Room Air 04/08/21 16:11 04/08/21 16:37 04/08/21 16:54 Temperature Temperature Source Pulse Rate 81 74 77 Respiratory Rate 20 H 15 25 H Blood Pressure 181/108 H 180/99 H 160/97 H Blood Pressure Mean 132 126 118 Pulse Ox 100 99 99 Oxygen Delivery Method Room Air Room Air Room Air 04/08/21 17:11 04/08/21 18:35 Temperature Temperature Source Pulse Rate 78 87 Respiratory Rate 24 H 20 H Blood Pressure 157/95 H 150/92 H Blood Pressure Mean 115 111 Pulse Ox 99 98 Oxygen Delivery Method Room Air Room Air Positive well nourished and well developed General Appearance ED: well developed HEENT Reports moist mucous membranes Eyes PERRL and EOMs intact bilaterally Neck supple Neck Narrative: No meningeal signs Chest Wall palpation of chest normal Resp normal respiratory effort and clear to auscultation bilaterally Cardio regular rate and regular rhythm Rate: other Other Details: Radial pulses are plus 2 out of 4 bilaterally are equal and symmetric GI normal to inspection, nondistended, normoactive bowel sounds, non-tender, non-distended and no masses GI Narrative: No voluntary guarding or rigidity no pulsatile mass Auscultation: normoactive bowel sounds Palpation: soft Extremity normal to inspection Neuro Neuro Narrative: Patient is awake but only oriented to person he is disoriented to time and place. He does not have any obvious focal neurologic deficits but is just confused Psych Psych Narrative: Mental status is depressed/flat Skin no rashes or lesions noted MDM MDM MDM Narrative Medical decision making narrative: Patient presented to the ER mildly hypertensive but otherwise in no acute distress. He could tell me his name but he cannot answer his birthdate the year or where he was at. Reportedly this is how he gets when he is not taking his medication per family. It is obvious based on his mental status that he is not capable of caring for himself and therefore as family does not want to take the illness of caring for him and trying to make him restart his medications I do feel placement is the most proper/appropriate action at this time. A medical clearance exam was performed and revealed no clinically significant findings. Therefore this time patient is medically cleared and safe for transfer/placement in a psychiatric facility. Patient has been accepted at [facility] by Dr. Gunderson Lab Data Attestation: I reviewed the patient's lab results. Labs: Laboratory Results - last 24 hr 04/08/21 04/08/21 04/08/21 14:44 14:44 14:44 WBC 8.8 RBC 4.36 L Hgb 15.2 Hct 42.1 MCV 96.6 H MCH 34.9 H MCHC 36.1 H RDW Std Deviation 46.4 H RDW Coeff of Oneal 12.9 Plt Count 151 MPV 10.2 Immature Gran % (Auto) 0.200 Neut % (Auto) 81.7 H Lymph % (Auto) 11.5 L Ashe % (Auto) 5.9 Eos % (Auto) 0.1 Baso % (Auto) 0.6 Absolute Neuts (auto) 7.2 Absolute Lymphs (auto) 1.01 Nucleated RBC % 0 Sodium 137 Potassium 3.5 Chloride 102 Carbon Dioxide 24.0 Anion Gap 11 BUN 24 H Creatinine 0.91 Estim Creat Clear Calc 67.50 Est GFR (MDRD) Af Amer 108 Est GFR (MDRD) Non-Af 89 BUN/Creatinine Ratio 26.4 H Glucose 118 H Calcium 10.1 Total Bilirubin 1.10 H Direct Bilirubin 0.41 H AST 61 H ALT 33 Alkaline Phosphatase 139 H Total Protein 7.7 Albumin 4.1 Globulin 3.6 TSH 6.40 H Urine Color Urine Clarity Urine pH Ur Specific [place] Urine Protein Urine Glucose (UA) Urine Ketones Urine Occult Blood Urine Nitrite Urine Bilirubin Urine Urobilinogen Ur Leukocyte Esterase Urine RBC Urine WBC Ur Squamous Epith Cells Urine Bacteria Urine Mucus Salicylates 7.6 Urine Opiates Screen Urine Methadone Screen Acetaminophen < 2.0 L Ur Barbiturates Screen Ur Phencyclidine Scrn Ur Amphetamines Screen U Methamphetamin-MDMA U Benzodiazepines Scrn Urine Cocaine Screen U Cannabinoids Screen Ur Drug Screen Comment Ethyl Alcohol 6.0 04/08/21 04/08/21 17:50 17:50 WBC RBC Hgb Hct MCV MCH MCHC RDW Std Deviation RDW Coeff of Oneal Plt Count MPV Immature Gran % (Auto) Neut % (Auto) Lymph % (Auto) Ashe % (Auto) Eos % (Auto) Baso % (Auto) Absolute Neuts (auto) Absolute Lymphs (auto) Nucleated RBC % Sodium Potassium Chloride Carbon Dioxide Anion Gap BUN Creatinine Estim Creat Clear Calc Est GFR (MDRD) Af Amer Est GFR (MDRD) Non-Af BUN/Creatinine Ratio Glucose Calcium Total Bilirubin Direct Bilirubin AST ALT Alkaline Phosphatase Total Protein Albumin Globulin TSH Urine Color Yellow Urine Clarity Clear Urine pH 6.0 Ur Specific [place] 1.020 Urine Protein 30 H Urine Glucose (UA) Normal Urine Ketones 150 A* Urine Occult Blood 10 H Urine Nitrite Negative Urine Bilirubin Negative Urine Urobilinogen 1 H Ur Leukocyte Esterase Negative Urine RBC 0-5 SEEN Urine WBC 0-5 SEEN Ur Squamous Epith Cells 0 SEEN Urine Bacteria 0 SEEN Urine Mucus 0 SEEN Salicylates Urine Opiates Screen NEGATIVE Urine Methadone Screen NEGATIVE Acetaminophen Ur Barbiturates Screen NEGATIVE Ur Phencyclidine Scrn NEGATIVE Ur Amphetamines Screen NEGATIVE U Methamphetamin-MDMA NEGATIVE U Benzodiazepines Scrn NEGATIVE Urine Cocaine Screen NEGATIVE U Cannabinoids Screen NEGATIVE Ur Drug Screen Comment Ethyl Alcohol Discharge Plan Triage Chief Complaint: Confusion ED Provider: Anthony Goodwin Dx/Rx/DC Orders Clinical Impression: Bipolar 1 disorder, Schizoaffective disorder, Noncompliance with medication regimen Prescriptions: No Action oxcarbazepine [Trileptal] 150 mg tablet 150 mg PO BID RF: 0 mirtazapine 15 mg tablet 30 mg PO QHS RF: 0 risperidone [Risperdal] 1 mg tablet 1 mg PO BID RF: 0 benztropine 0.5 mg tablet 0.5 mg PO BID RF: 0 buspirone 10 mg tablet 10 mg PO TID 30 Days Qty: 90 RF: 3 thiamine HCl (vitamin B1) 100 mg tablet 100 mg PO DAILY Qty: 30 RF: 5 fluoxetine 20 mg capsule 20 mg PO DAILY Qty: 30 RF: 6 ibuprofen 400 MG tablet 400 mg PO Q6H PRN PRN (Reason: pain/fever) RF: 0 lamotrigine [Lamictal] 100 mg tablet 100 mg PO DAILY Qty: 90 RF: 1 omeprazole 20 mg capsule,delayed release(DR/EC) 20 mg PO DAILY Qty: 90 RF: 1 oxybutynin chloride 15 mg tablet extended release 24hr 15 mg PO DAILY Qty: 30 RF: 0 levothyroxine 50 mcg tablet 50 mcg PO DAILY Qty: 30 RF: 2 gabapentin 100 mg capsule 200 mg PO TID Qty: 180 RF: 1 Primary Care Provider: Jose Castro Referrals: Jose Castro MD [Primary Care Provider] - Disposition Disposition: Psychiatric Hospital or Unit Discharge Location: [facility]
--- NOTE | 2021-04-08 15:46 | ED.RN ---
Pt. sister at beside. States they were unable to reach pt. on phone and administrator social welfare had also been unable to reach them. Sister went to residence and pt. answered door with no clothes on except one sock.
[2021-04-08 15:54] LABS: AST(SGOT) 61 U/L (15-37); Alanine Aminotransfer ALT/SGPT 33 U/L (16-61); Albumin, Serum 4.1 g/dL (3.2-5.0); Alkaline Phosphatase 139 U/L (45-117); Anion Gap 11 (5-15); BUN 24 mg/dL (7-18); BUN/Creat Ratio 26.4 RATIO (10-20); Bilirubin, Direct 0.41 mg/dL (0.00-0.30); Calcium,Total 10.1 mg/dL (8.5-10.1); Chloride 102 mmol/L (98-107); Creatinine, Serum 0.91 mg/dL (0.70-1.30); EST Glomerular Filtration Rate 89 mL/min (>60); Est Glom Filt Rate - Afr Amer 108 mL/min (>60); Globulin 3.6 g/dL (2.2-4.2); Glucose 118 mg/dL (74-106); Potassium 3.5 mmol/L (3.5-5.1); Protein, Total 7.7 g/dL (6.4-8.2); Sodium Level 137 mmol/L (136-145)
[2021-04-08 16:01] LABS: Acetaminophen (Tylenol) Level < 2.0 ug/mL (10.0-30.0); Salicylate 7.6 mg/dL (2.8-20.0)
[2021-04-08] MEDS: LORazepam 2 MG/ML Syringe 1 MG IV (16:24)
--- NOTE | 2021-04-08 16:50 | CM.ED ---
Social Work Psychiatric Assessment: Referral Reason: Mental Health Referral Source: MD Chief Complaint: SW met with patient and his sister in the ED room. Patient was asked why he came to the ED and his response was ?just probably?. SW asked how it is going at home and patient said, ?Guess I should be?. Patient?s sister said that she is ?not around often but he is confused and not coherent. I am not sure if he is drinking, taking his meds or if he is eating?. Patient would make statements ?didn?t seem like any time of... little bit? when asked question about presentation. Patient was restless. He took off his oxygen sensor and when sister said to put it on his middle finger, he was unable to identify his middle finger. Marital /Social History: per sister Living Situation: Apartment by himself per sister Supports/Resources: Sister reports she is patient?s support, as well as [facility] History: No per sister Education and Employment History: Per sister patient graduated from High School and college. He has degree in social work. He was asked what type of work he did, and his response was ?as far as? and then did not proceed. Sister said patient worked at [employer]. Mental Health Treatment and History: Patient is linked with the [facility] for case management and psychiatry. Patient?s CM is Amarilis Mckeon. Sister said that patient?s diagnosis is ?Bipolar, Schizophrenia, Alcoholism and Depression?. Patient has previously been hospitalized at [facility] and [place]. Triggers: Patient unable to answer Coping Skills: Unable to answer Abuse Issues: Unable to answer Substance Abuse: When asked about substance patient said, ?Like I am having? and did not continue with statement. Risk to Self/Others Suicidal: Patient unable to respond Homicidal: Patient unable to respond Violence: Patient unable to respond. No evidence of violence. Mental Status Exam: Orientation: Impaired Memory: Impaired Appearance/General Behavior: Disheveled. Patient looks extremely skinny. SW asked if patient is eating and he said, ?I guess no?. While patient was in the bed patient was restless and sister asked why her keepings moving and he said, ?I don?t feel like I am?, Mood/Affect: Depressed mood and affect Communication Pattern: Incoherent, Unable to finish sentence. Thought Process: Fragmented General Intellectual Functioning: Average Judgment: Impaired Insight: Impaired Patient is incoherent and confused. He is unable to verbalize his current conditions. He is restless in the bed and was unable to identify his middle finger for his sister. It has been reported by RN that patient is off his medication. Patient has diagnosis of Schizophrenia, Alcoholism, Depression and Bipolar. Patient is not attending to his ADL?s and thus with his current mental state he needs inpatient psych hospitalization for stabilization and resumption of medication. Plan: Admit to Inpatient Psychiatric [facility]
[2021-04-08 18:05] LABS: Bacteria 0 SEEN /hpf (None Seen); Mucous, Urine 0 SEEN /hpf (<or=2+); Squamous Epithelial Cells - UA 0 SEEN /hpf (0-5)
[2021-04-08 18:08] LABS: Color, Urine Yellow (Yellow); Glucose, Dipstick Normal (Normal); Leukocyte Esterase-Dipstick Negative /ul (Negative); Nitrite-Dipstick Negative (Negative); Occult Blood-Urine 10 /ul (Negative); Protein-Dipstick 30 mg/dl (Negative); Urine Bilirubin Dipstick Negative (Negative); Urine Clarity Clear (Clear); Urine Urobilinogen 1 mg/dl (Normal)
[2021-04-08 18:19] LABS: Ketone-Dipstick 150 mg/dl (Negative)
[2021-04-08 18:28] LABS: Red Blood Cells-Urine 0-5 SEEN /hpf (0-5); White Blood Cells 0-5 SEEN /hpf (0-5)
[2021-04-08 18:30] LABS: Amphetamine Urine VISTA NEGATIVE (<1000 ng/mL); Barbiturate Urine VISTA NEGATIVE (< 200 ng/mL); Benzodiazepine Urine VISTA NEGATIVE (< 200 ng/mL); Cocaine Urine VISTA NEGATIVE (< 300 ng/mL); Ecstacy Urine VISTA NEGATIVE (< 500 ng/mL); Methadone Urine VISTA NEGATIVE (< 300 ng/mL); PCP Urine VISTA NEGATIVE (< 25 ng/mL); THC Urine VISTA NEGATIVE (< 50 ng/mL); Vista UDS pH Range 5
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
--- NOTE | 2021-04-08 19:24 | CM.ED ---
SW Note SW received call from [facility]. Patient has been accepted to Psych ICU unit. Accepting MD is Neptali. RN to RN is [phone]. SW faxed copy of pink slip to [facility]. RN updated. RN will call report. secretary to board of commissioners is scheduling ride. Patient updated. Patient's sister will be called by RN. No further SW services needed at this time. Plan: [facility]
--- NOTE | 2021-04-08 19:51 | ED.RN ---
Sister Emma notified over the phone of patient being transported to [facility]. All questions answered, she denies further needs.
--- NOTE | 2021-04-08 20:57 | CM.ED ---
BARBARA Note BARBARA received call from Amarilis, patient's catalytic case operator from [facility]. She was calling to see the status of patient. She was advised that patient was gone to [facility]. (Of note patient gave this telegraphic typewriter installer verbal permission to speak to [facility] CM Amarilis). She inquired if sister had been updated. BARBARA advised that ANSHU Harris had spoke to patient's sister for update. Amarilis said that she feels that [facility] and hospitalization is the best for patient. She will follow up with sister tomorrow. Plan: [facility]
== END 2021-04-08 20:07 ==
PROVIDERS: Emergency Provider Emergency Medicine; PCP Internal Medicine
DX: F31.9 Bipolar disorder, unspecified (principal); F25.9 Schizoaffective disorder, unspecified; Z91.14 Patient's other noncompliance with medication regimen; J44.9 Chronic obstructive pulmonary disease, unspecified; F03.90 Unspecified dementia, unspecified severity, without behavioral disturbance, psychotic disturbance, mood disturbance, and anxiety; I10 Essential (primary) hypertension; E78.00 Pure hypercholesterolemia, unspecified; R13.10 Dysphagia, unspecified; H40.9 Unspecified glaucoma; K21.9 Gastro-esophageal reflux disease without esophagitis; G62.9 Polyneuropathy, unspecified; M19.90 Unspecified osteoarthritis, unspecified site; R56.9 Unspecified convulsions; F17.210 Nicotine dependence, cigarettes, uncomplicated; Z79.890 Hormone replacement therapy; Z79.899 Other long term (current) drug therapy; Z86.16 Personal history of COVID-19
CPT/HCPCS: 80048; 80076; 80307; 80329; 81001; 82077; 84443; 85025; 87426; 93005; 96365; 96375; 99285; A4216; G0480; J3490

== ENCOUNTER 2021-07-05 14:41 | Outpatient (CLI) | payer MEDICARE, BC, SELFPAY ==
[2018-06-11 13:33] VITALS: BMI 26.4
--- NOTE | 2021-07-05 14:53 | CT_ITS ---
EXAM: CT CHEST WITH INTRAVENOUS CONTRAST CLINICAL INDICATION: mass, CT chest to evaluate -- h/o lung cancer treated with SBRT TECHNIQUE: Helically acquired images were obtained of the chest with intravenous contrast. This CT exam was performed using one or more of the following dose reduction techniques: automated exposure control, adjustment of the mA and/or kV according to patient size, and/or use of iterative reconstruction technique. This report was created using [employer] report generation technology. CONTRAST: IV 100mL Isovue-370 COMPARISON: Nov 21 2019 1:38pm FINDINGS: LUNGS AND PLEURAL SPACES: Mucous, fluid, or debris noted in the posterior tracheal wall and left bronchus. There are bilateral pleural effusions and right lower lobe pneumonia. This may suggest an aspiration pneumonia. Spiculated right hilar mass measures 28x 25 mm. This has enlarged since the prior study. There are scattered blebs and bullae. This can be seen in pulmonary emphysema. Right hilar mass extends from the right hilum through the right middle lobe with small linear tract extending to the pleural surface. HEART: Unremarkable. Heart size is normal. No pericardial effusion. No significant coronary artery calcifications. MEDIASTINUM: Unremarkable. No mediastinal or hilar adenopathy. Esophagus is unremarkable. No hiatal hernia. THYROID: Unremarkable. No thyroid lesions. BONES/JOINTS: Unremarkable. No suspicious lytic or blastic abnormality. VASCULATURE: Unremarkable. Thoracic aorta is non-dilated. No thoracic aortic dissection. No obvious central pulmonary embolism although this study was not performed with the pulmonary embolism protocol. LIVER: Liver and spleen are diffusely heterogeneous. The both contain hypodense nodules. Given the findings in the lung, metastatic disease is of concern. Largest lesion in the liver is in the right lobe measuring 15 mm. Largest lesion in the spleen is 5 mm. GALLBLADDER AND BILE DUCTS: Gallstones. KIDNEYS AND URETERS: Severe atrophy of the left kidney. INTRAPERITONEAL SPACE: Abdominal ascites. CT/Chest WITH Contrast IMPRESSION: 1. Mucous, fluid, or debris noted in the posterior tracheal wall and left bronchus. There are bilateral pleural effusions and right lower lobe pneumonia. This may suggest an aspiration pneumonia. 2. Spiculated right hilar mass measures 28x 25 mm. This has enlarged since the prior study. 3. Gallstones. 4. Abdominal ascites. 5. Liver and spleen are diffusely heterogeneous. The both contain hypodense nodules. Given the findings in the lung, metastatic disease is of concern. Electronically Signed: Giovanni Restrepo MD at 15:39 EST ,
[2021-07-05 15:15] LABS: CREATININE FINGERSTICK 0.8 mg/dL (0.70-1.30); EGFR FINGERSTICK > 60.0000 mL/min (>60)
== END 2021-07-05 23:59 | disposition short-term general hospital (02) ==
LOC: CT 14:48
PROVIDERS: PCP Internal Medicine; Referring Provider Student in an Organized Health Care Education/Training Program; Visit Provider Student in an Organized Health Care Education/Training Program
DX: C34.90 Malignant neoplasm of unspecified part of unspecified bronchus or lung (principal)
CPT/HCPCS: 71260; Q9967

== ENCOUNTER 2021-07-12 10:19 | Outpatient (CLI) | payer MEDICARE, BC, SELFPAY ==
[2018-06-11 13:33] VITALS: BMI 26.4
--- NOTE | 2021-07-12 | FLU_PTH ---
PATIENT: JHOAN BENNETT LOC: [facility]#:[id number] AGE/SX: 65/M ROOM: RE07/12/[address]: Dr. Timoteo Olivier DO : 1955 BED: DIS: 07/12/2021 SPEC #: [id number] RECD: 07/12/21 12:15 STATUS: HAYDEN STEVE #: [id number] SHEILA: 07/12/21 00:[address]: Timoteo Olivier DEPT: CYTOLOGY RECD BY: Zeke Gaxiola ENTERED: 07/12/21 12:15 SP TYPE: Fluid OTHR DR: Dr. Jose Castro MD Tissues: THORACIC FLUID Procedures: Special Stain Group II Surgery Specimen Level IV Cytospin Fluid HEADER OPERATION: Right thoracentesis PRE-OP DIAGNOSIS: Pleural effusion TISSUE SUBMITTED: Thoracentesis fluid for cytology DIAGNOSIS CYTOLOGY Thoracentesis fluid for cytology (cytospin and cell block): Positive for malignant cells, favor adenocarcinoma. See comment. AM:rg 07/13/2021 COMMENT Immunohistochemistry ([id number]) is consistent with a lung primary. Correlation with clinical findings and appropriate follow up are necessary. Case has been reviewed in consultation with Dr. Valerio who concurs with the above diagnosis. IDC:SJ CYTOLOGY STUDY Slides are reviewed. CYTOLOGY GROSS Received is 95 ml of yellow cloudy fluid labeled with the patient's name and and designated per the requisition as thoracentesis. Submitted for cytology preparation including cell block. / zachary 07/12/2021 TC:0 CPT: 14493, 65241
--- NOTE | 2021-07-12 | IMM_PTH ---
PATIENT: JHOAN BENNETT LOC: [facility]#:[id number] AGE/SX: 65/M ROOM: RE07/12/[address]: Dr. Timoteo Olivier DO : 1955 BED: DIS: 07/12/2021 SPEC #: [id number] RECD: 07/13/21 11:54 STATUS: HAYDEN REQ #: [id number] SHEILA: 07/12/21 00:[address]: Timoteo Olivier DEPT: IMMUNOHISTOCHEMISTRY RECD BY: Mare Dean ENTERED: 07/13/21 11:56 SP TYPE: IMMUNO OTHR DR: Dr. Jose Castro MD Tissues: THORACIC FLUID Procedures: NAPSIN A (add) Romeo Ret (add) CK20 (add) CK5-6 (add) CK7 (add) CK8 (add) RODRIGUES-2 (add) KI-67 (add) MACRO (add) P53 (add) TTF1 (add) Vimentin (add) Pankeratin (initial) P40 (add) CDX2 (add) PHYSICIAN & [address] [address] SPECIMEN INFORMATION: Tissue Source: Thoracentesis fluid Clinical Info: Pleural effusion Specimen Number: [id number] CPT code: 36356, 96762 x14 METHODOLOGY: Deparaffinized sections of prefer/formalin-fixed tissue or PAP/DQ stained slides are incubated with monoclonal/polyclonal antibodies/oligonucleotide probes. Localization is made via biotin free immunoperoxidase method. Appropriate controls are performed and reacted as expected. Results on target cell population are indicated in the following table: RESULTS: ANTIBODY / CLONE RESULT AE1-3 (AE1/AE3/PCK26) positive CK7 (OV-TL12/30) positive CK8 (84qfusC64) positive CK20 (KS20.8) negative RODRIGUES-2 (SP21) positive CDX2 ([id number]) positive, weak and focal Vimentin (V9) negative Macro (HAM-56) negative TTF-1 (8G7G3/1) negative Napsin A (Rabbit Polyclonal) positive CALRET (polyclonal) negative CK5-6 (D5 & 1684) negative P40 (BC28) negative P53 (DO-7) positive, moderate Ki-67 (30-9) positive, moderate These tests were developed and their performance characteristics determined by [facility]. They may not have been cleared or approved by the U.S. Food and Drug Administration. The FDA has determined that such clearance or approval is not necessary. The above immunohistochemical/dualISH markers are ordered and reviewed by the Pathologist. INTERPRETATION: Thoracentesis fluid (cell block): Malignant cells present derived from non-small cell carcinoma, favor adenocarcinoma, consistent with lung primary. SJ:zachary 07/14/2021
--- NOTE | 2021-07-12 10:21 | US_ITS ---
PROCEDURE: ULTRASOUND GUIDED THORACENTESIS. DATE: 07/12/2021. INDICATION: Male, 65 years old. Right pleural effusion. PHYSICIAN: Roberto Resendez M.D. PROCEDURE: The risks, benefits, and alternatives to the procedure were explained to the patient. The specific risks of bleeding, infection, and pneumothorax requiring chest tube insertion were discussed and accepted. Written informed consent was obtained. Ultrasonographic evaluation of the right lower pleural space was carried out. An adequate pocket was identified. The patient was placed in the sitting, upright position. The overlying skin was prepped and draped in sterile fashion. 1% lidocaine was administered subcutaneously for local anesthesia. Under ultrasound guidance, a 5French thoracentesis needle/catheter system was advanced into the right posterior lower pleural fluid collection. Approximately 610 mL of hu-colored fluid was drained. The catheter was removed, and a sterile dressing was applied. A specimen was collected and sent to the laboratory for analysis, as requested by the referring clinician. The patient tolerated the procedure well. A chest x-ray was ordered. US/Thoracentesis W US IMPRESSION: Ultrasound-guided right thoracentesis. Electronically Signed: Roberto Resendez MD at 12:08 EST ,
--- NOTE | 2021-07-12 10:45 | RAD_ITS ---
STUDY: X-RAY CHEST REASON FOR EXAM: Male, 65 years old. Right thoracentesis. Rule out pneumothorax. TECHNIQUE: AP inspiration and expiration views. COMPARISON: Comparison is made with prior study dated 05/03/2020. FINDINGS: The patient is status post right thoracentesis. No evidence of pneumothorax. Minimal residual bilateral blunting of the cost phrenic angles. RAD/Chest Insp/Exp 2 View IMPRESSION: No evidence of a pneumothorax on the post right thoracentesis images. Electronically Signed: Roberto Resendez MD at 11:21 EST ,
[2021-07-12 10:50] VITALS: BP 107/65; BP 98/58; PULSE 57; PULSE 95; RESP 18; RESP 20; TEMP 36.9; O2SAT 93; O2SAT 96
[2021-07-12] MEDS: Lidocaine 2% (20 ml mdv) 20 ML Vial INFILT (10:55)
[2021-07-12 11:28] LABS: Cytology, Body Fluid / CSF SEE PATHOLOGY REPORT
== END 2021-07-12 23:59 | disposition home or self-care (01) ==
LOC: US 10:20
PROVIDERS: PCP Internal Medicine; Referring Provider Student in an Organized Health Care Education/Training Program; Visit Provider Student in an Organized Health Care Education/Training Program
DX: C34.90 Malignant neoplasm of unspecified part of unspecified bronchus or lung (principal)
CPT/HCPCS: 32555; 71046; 88108; 88305; 88313; 88341; 88342